=== PATIENT | female | born 1990 | race Hispanic/Latino ===

== ENCOUNTER 2019-02-25 08:14 | Inpatient (IN) | payer OTHER ==
[2019-02-25] MEDS ORDERED: Metoclopramide HCl 10 MG/2 ML VIAL ONE (09:31)
[2019-02-25] MEDS ORDERED: Ketorolac Tromethamine 30 MG/ML VIAL ONE (09:31)
[2019-02-25] MEDS ORDERED: Lorazepam 2 MG/ML VIAL ONE (09:56)
[2019-02-25 10:32] LABS: #Eosinphils 0.1 thou/uL (0.0-0.7); #Lymphocytes 2.6 thou/uL (1.20-3.40); #Neutrophils 15.1 thou/uL (1.40-6.50); %Basophils 0.3 % (0.0-1.0); %Eosinophils 0.6 % (0.0-10.0); %Lymphocytes 13.6 % (21.0-51.0); %Monocytes 5.2 % (0.0-10.0); %Neutrophils 80.3 % (42.0-75.0); Mean Corpuscular Hemoglobin 29.3 pg (27.0-31.0); Mean Corpuscular Volume 88.6 fL (78.0-98.0); Mean Platelet Volume 8.3 fL (7.4-10.4); Platelet Count 267 thou/uL (130-400); RBC Distribution Width 11.5 % (11.5-14.5); Red Blood Cell (RBC) Count 4.11 mill/uL (4.20-5.40); White Blood Cell (WBC) Count 18.8 thou/uL (4.8-10.8)
--- NOTE | 2019-02-25 10:36 | CT ---
Head CT without contrast 02/25/2019: HISTORY: Headaches TECHNIQUE: Axial CT imaging at 5 mm intervals from vertex through skull base without contrast FINDINGS: The imaged paranasal sinuses and mastoid air cells are well aerated. No displaced calvarial fracture. No intracranial hemorrhage, midline shift, mass effect, or ventricul ar enlargement IMPRESSION: No acute findings.
[2019-02-25 10:42] LABS: BHCG - Serum Negative (NEGATIVE); Pregs Control Background? CLEAR/WHITE (CLR/WHITE); Pregs Control Bar Appear? YES (CONTROL BAR)
[2019-02-25 10:45] LABS: Bilirubin Negative (Negative); Blood, Urine 2+ (Negative); Clarity Clear (Clear); Glucose, Urine (Dipstick) Normal (Negative); Leukocyte 250 Leu/uL (Negative); Nitrite Negative (Negative); Protein, Urine (Dipstick) 50 mg/dL (Neg-Trace); Squamous Epithelial 0-3 HPF (0-3); Urobilinogen Normal mg/dL (Less than 2)
--- NOTE | 2019-02-25 10:45 | RAD ---
Exam: Chest one view: HISTORY: Seizure, headache syncopal episode nausea and vomiting FINDINGS: Poor inspiratory effort with bilateral vascular congestion, minimal cardiomegaly, and small pleural e ffusions. Probable mild interstitial edema, although this may well be exaggerated by poor inspiration. No confluent lobar pneumonia. No prior exams. IMPRESSION: Poor inspiratory effort. Minimal cardiomegaly, vascular congestion, probable small pleural effusions and possible mild edema. These changes are accentuated by the poor inspiratory effort. Correlate clinically, consider short-term follow-up.
[2019-02-25 10:51] LABS: Amphetamine Not Detected (NotDetected); Barbiturates Screen Not Detected (NotDetected); Benzodiazepine Screen Not Detected (NotDetected); Cocaine Metabolite Screen Not Detected (NotDetected); Medtox Control Line Valid? VALID (VALID); Medtox Reader # READER 4; Methadone Not Detected (NotDetected); Methamphetamine Not Detected (NotDetected); Opiate Screen Not Detected (NotDetected); Oxycodone Screen Not Detected (NotDetected); Phencyclidine (PCP) Not Detected (NotDetected); THC/Cannabinoid Screen Not Detected (NotDetected); Tricyclic Screen Not Detected (NotDetected)
[2019-02-25 10:58] LABS: Bacteria/HPF None Seen HPF (None Seen)
[2019-02-25 11:06] LABS: Acetaminophen Less than 6.0 mcg/mL (10.0-30.0); Alcohol Less than 10 mg/dL (Less than 10); Salicylate Less than 8.0 mg/dL (15.0-30.0)
[2019-02-25 12:07] LABS: ALT (SGPT) 59 U/L (8-55); AST (SGOT) 15 U/L (5-34); Albumin 3.5 g/dL (3.5-5.0); Alkaline Phosphatase 66 U/L (40-110); Bilirubin, Total 0.3 mg/dL (0.2-1.2); Calc. Creatinine Clearance 0 mL/min (70-130); Chloride 103 mmol/L (98-107); Estimated GFR-MDRD 3; Globulin 3.6 g/dL (2.4-3.5); Glucose 121 mg/dL (70-105); Potassium 5.6 mmol/L (3.5-5.1); Protein, Total 7.1 g/dL (6.0-8.3); Sodium 137 mmol/L (136-145)
[2019-02-25 12:21] LABS: BUN (Urea Nitrogen) 153 mg/dL (7.0-18.7)
[2019-02-25 12:24] LABS: Carbon Dioxide Less than 8 mmol/L (22-29)
[2019-02-25] MEDS ORDERED: levETIRAcetam 500 MG TAB PO SCH (13:00)
[2019-02-25] MEDS ORDERED: Acetaminophen 650 MG Suppository PR PRN (13:05)
[2019-02-25] MEDS ORDERED: Acetaminophen 325 MG TAB PO PRN (13:05)
--- NOTE | 2019-02-25 13:24 | PDOC.HHP ---
Hospitalist HPI - History of Present Illness Headache History of Present Illness: Ms. Sunshine is a 29 yo woman who was brought from Shelter with complaints of a FLORES which she has had for 5 days. Also with nausea/vomiting. Apparently was noted by EMS to have a syncopal episode when standing. She was treated with medication for nausea by EMS. Difficulty obtaining much information as patient is drowsy from Ativan. She denies any other complaints. On arrival to the ED she was treated with reglan and toradol, then witnessed to have a 5 min tonic-clonic seizure. Ativan 2 mg given, and seizure subsided. Per Dr. Kenney, her eyes deviated to the left. She bit her tongue and no post -ictal state, however she remained with somnolent/flat affect as she had before the seizure. CT Head was done showing no acute intracranial abnormalities. UDS was negative. Initial labs showed a WCC of 18. Laboratory studies later came back showing acute renal failure with a creatinine of 13 and GFR of 3. Case has been discussed with Dr. Delvalle who advised central catheter placement and emergent dialysis. Denies any past medical history. No history of seizures or issues with her kidneys in the past. ED Course: As above. Hospitalist ROS - Review of Systems Constitutional: denies: fever, chills, sweats, weakness, malaise, other Eyes: reports: vision change (sensitivity to light). denies: pain, conjunctivae inflammation, eyelid inflammation, redness, other ENT: denies: ear pain, ear discharge, nose pain, nose discharge, nose congestion , mouth pain, mouth swelling, throat pain, throat swelling, other Respiratory: denies: cough, dry, shortness of breath, hemoptysis, SOB with excertion, pleuritic pain, sputum, wheezing, other Cardiovascular: reports: light headedness. denies: chest pain, palpitations, orthopnea, paroxysmal noc. dyspnea, edema, other Gastrointestinal: reports: nausea, vomiting. denies: abdominal pain, diarrhea, constipation, melena, hematochezia, other Genitourinary: denies: dysuria, frequency, incontinence, hematuria, retention, other Musculoskeletal: denies: neck pain, shoulder pain, arm pain, back pain, hand pain, leg pain, foot pain, other Skin: denies: rash, lesions, angelique, bruising, other Neurological: reports: seizures (Witnessed in the ED). 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 Gastrointestinal: reports: GERD Heme/Onc: reports: no pertinent history Hepatobiliary: reports: no pertinent history Psych: reports: no pertinent history Musculoskeletal: reports: no pertinent history Rheumatologic: reports: no pertinent history Infectious Disease: reports: no pertinent history ENT: reports: no pertinent history Renal/: reports: no pertinent history Endocrine: reports: no pertinent history Dermatology: reports: no pertinent history - Past Surgical History Past Surgical History: reports: - Family History Family History: reports: no pertinent history - Social History Smoking Status: Former smoker Alcohol: reports: None Drugs: reports: none Living Situation: Other (Transferred form Shelter) Activity level: independent ambulation - Exam General Appearance: NAD Eye: PERRL, anicteric sclera ENT: normocephalic atraumatic, no oropharyngeal lesions Neck: supple, no lymphadenopathy Heart: RRR, no murmur, no gallops, no rubs Respiratory: CTAB Gastrointestinal: soft, non-tender, non-distended, normal bowel sounds Extremities: no cyanosis, no clubbing, no edema Skin: normal turgor Neurological: cranial nerve grossly intact Neurological - other findings: Patient drowsy, speech slow but normal and appropriate Musculoskeletal: normal tone, no muscle wasting, generalized weakness Psychiatric: A&O x 3, oriented to person, oriented to place, somnolent Hospitalist Results - Labs Result Diagrams: 02/25/19 10:13 02/25/19 10:13 Lab results: WBC 18.8 thou/uL (4.8-10.8) H 02/25/19 10:13 Hgb 12.0 g/dL (12.0-16.0) 02/25/19 10:13 Hct 36.4 % (36.0-47.0) 02/25/19 10:13 MCV 88.6 fL (78.0-98.0) 02/25/19 10:13 Plt Count 267 thou/uL (130-400) 02/25/19 10:13 Neutrophils % 80.3 % (42.0-75.0) H 02/25/19 10:13 Sodium 137 mmol/L (136-145) 02/25/19 10:13 Potassium 5.6 mmol/L (3.5-5.1) H 02/25/19 10:13 Chloride 103 mmol/L (98-107) 02/25/19 10:13 Carbon Dioxide Less than 8 mmol/L (22-29) L* 02/25/19 10:13 BUN 153 mg/dL (7.0-18.7) H 02/25/19 10:13 Creatinine 13.34 mg/dL (0.6-1.1) H 02/25/19 10:13 Glucose 121 mg/dL (70-105) H 02/25/19 10:13 Calcium 9.0 mg/dL (7.8-10.44) 02/25/19 10:13 Total Bilirubin 0.3 mg/dL (0.2-1.2) 02/25/19 10:13 AST 15 U/L (5-34) 02/25/19 10:13 ALT 59 U/L (8-55) H 02/25/19 10:13 Alkaline Phosphatase 66 U/L (40-110) 02/25/19 10:13 Serum Total Protein 7.1 g/dL (6.0-8.3) 02/25/19 10:13 Albumin 3.5 g/dL (3.5-5.0) 02/25/19 10:13 Urine Ketones Negative mg/dL (Negative) 02/25/19 10:13 Urine Blood 2+ (Negative) A 02/25/19 10:13 Urine Nitrite Negative (Negative) 02/25/19 10:13 Ur Leukocyte Esterase 250 Giovana/uL (Negative) A 02/25/19 10:13 Urine RBC 7-10 HPF (0-3) A 02/25/19 10:13 Urine WBC 11-20 HPF (0-3) A 02/25/19 10:13 Ur Squamous Epith Cells 0-3 HPF (0-3) 02/25/19 10:13 Urine Bacteria None Seen HPF (None Seen) 02/25/19 10:13 - Radiology Interpretation CT scan - head Status: report reviewed by me Hospitalist H&P A/P - Problem (1) Hyperkalemia Code(s): E87.5 - HYPERKALEMIA Status: Acute (2) ARF (acute renal failure) Status: Acute (3) New onset seizure Code(s): R56.9 - UNSPECIFIED CONVULSIONS Status: Acute (4) Headache Code(s): R51 - HEADACHE Status: Acute (5) Syncope Code(s): R55 - SYNCOPE AND COLLAPSE Status: Acute (6) GERD (gastroesophageal reflux disease) Code(s): K21.9 - GASTRO-ESOPHAGEAL REFLUX DISEASE WITHOUT ESOPHAGITIS Status: Acute - Plan Plan: Dr. Kenney discussed with Dr. Delvalle, patient for central line and emergent dialysis. Repeat labs following dialysis. Renal ultrasound. EKG to be completed. PRN ativan. Neuro consult placed, per Dr. Paul, defer further investigations per Neuro. Additional labs including Mg+, lactic acid, CK and prolactin. Patient assessed and discussed with Dr. Paul who agrees with plan as above.
[2019-02-25] MEDS ORDERED: Lorazepam 2 MG/ML VIAL SLOW IVP PRN (13:34)
--- NOTE | 2019-02-25 14:49 | ULT ---
Exam: Bilateral renal ultrasound complete: HISTORY: Renal failure COMPARISON: None FINDINGS: Right kidney: 11.7 x 6.4 x 6.2 cm Left kidney: 11.9 x 6.3 x 6.1 cm No renal hydronephrosis. No evidence for abnormal perinephric process. No solid or cystic renal mass. Unremarkable appearing urinary bladder. Prevoid bladder volume 290 cc. Post void bladder volume 6 cc IMPRESSION: Unremarkable bilateral renal ultrasound. No hydronephrosis or perinephric process.
--- NOTE | 2019-02-25 14:51 | ULT ---
Exam: Bladder ultrasound: HISTORY: Renal failure. FINDINGS/impression: The urinary bladder is unremarkable. Neither right or left ureteral jets are seen. Prevoid bladder volume 290 cc. Post void bladder volume 6 cc
[2019-02-25 15:12] LABS: HBSAg Index 0.16 S/CO (0-0.99); Hep B Surf Ag Non-Reactive S/CO (NonReactive)
[2019-02-25 15:40] VITALS: BMI 37.1
[2019-02-25 15:50] LABS: CRP (Inflammatory) 9.4 mg/dL (= or < 0.5)
[2019-02-25 15:56] LABS: Lactic Acid 0.8 mmol/L (0.5-2.2)
--- NOTE | 2019-02-25 16:03 | CON ---
DATE OF CONSULTATION: 02/25/2019 REQUESTING PHYSICIAN: Dr. Hai Paul. REASON FOR CONSULTATION: Acute renal failure. HISTORY OF PRESENT ILLNESS: A 29-year-old female, a [facility] inmate, who was [facility] the [facility] after a syncopal episode. The patient reportedly has been having headaches since about 5 days associated with nausea and vomiting, which reportedly started after taking ibuprofen for headache 4 days ago. Headache persisted, since then up onto presentation to the ER. The patient also reported that nausea and vomiting gets worse after eating. She reportedly was seen at the [facility] and was given 2 tablets of Tylenol 4 days ago, following which she developed nausea and vomiting. She went back and was told to eat some salty diet and drink a lot of fluid. She had a few other bouts of nausea and vomiting. Earlier today, the patient reportedly woke up with dizziness and blurry vision and soon found herself on the floor. EMS was called and the patient was brought to the hospital. While evaluation was in process in the ER, the patient had a tonic clonic convulsive seizure. Labs drawn earlier on, came back showing BUN of 153 with creatinine of 13.3. On further questioning, the patient admitted that she has been having dizziness on standing since onset of symptoms. She also admitted to using ibuprofen daily when she injured her right knee about 2 to 3 weeks ago and was also prescribed steroid for the knee pain. She denied taking any substance to harm herself. She has no any knowledge of prior kidney problems or any medical issue. She has been in the retirement for about 7 years and has never been told she has kidney problems. She admitted to bilateral leg swelling which she noticed about several days ago. There is no history of fever, cough, chest pain, dysuria, hematuria, hematemesis, abdominal pain, hematochezia, hematuria, or change in bowel habit. The patient denied diarrhea. PAST MEDICAL HISTORY: None. PAST SURGICAL HISTORY: . FAMILY HISTORY: The patient does not know medical history of her parents. She, however, denied any kidney disease in both parents or siblings. SOCIAL HISTORY: The patient is a former smoker. She also drinks alcohol occasionally, but in the last 7 years has not smoked or drank alcohol. HOME MEDICATIONS: Ibuprofen p.r.n. ALLERGIES: NO KNOWN DRUG ALLERGIES REPORTED. REVIEW OF SYSTEMS: A 12-point review of system performed was negative other than pertinent positives and negatives included in the history of present illness. PHYSICAL EXAMINATION: VITAL SIGNS: Initial vitals on presentation to the ER showed BP 165/115, pulse 84, respiratory rate 18, SpO2 of 98% on room air, temperature 98.4, pain 8/10. Most recent vitals showed BP of 128/93, pulse of 90, respiratory rate of 20, temperature of 98.5, pain 0/10 and SpO2 of 97 on room air. Note that the patient had a cocktail of metoclopramide and ketorolac for headache prior to the seizures. GENERAL: Obese young female, in no distress. Afebrile. Anicteric. Acyanotic. HEENT: Normocephalic, atraumatic. Pupils are reacting to light. Oral mucosa is moist. NECK: Supple. Nontender with good range of motion. No masses or lymphadenopathy or JVD appreciated. CARDIOVASCULAR: Regular rhythm and rate with normal heart sounds 1 and 2. RESPIRATORY: Fair air entry bilaterally with few transmitted breath sounds. No obvious crackle or rhonchi or use of accessory muscles appreciated. GI: Obese, soft, nontender, nondistended with normal bowel sounds. EXTREMITIES: Grossly normal looking atraumatic with no erythema. Mild to moderate bilateral leg edema noted. VEHICLE CHECK IN CLERK: Conscious and alert and oriented x3 with appropriate mental status. Cranial nerves 2 through 12 are grossly intact. The patient moves all extremities. There is no tremors appreciated. PSYCHIATRIC: The patient seems appropriate with good insight. No restlessness or agitation appreciated. DIAGNOSTIC DATA: CBC showed WBC count of 18.8, hemoglobin of 12.0, MCV of 88.6, platelet of 267. CMP showed sodium 137, potassium 5.6, chloride 103, CO2 less than 8, anion gap too numerous to count, BUN 153, creatinine 13.34, glucose 121, calcium 9.0, total bilirubin 0.3, AST 15, ALT 59, alkaline phosphatase 66, total protein 7.1, albumin 3.5, globulin 3.6. Urinalysis showed light yellow, clear urine with pH of 5.5, specific gravity of 1.009. Urine protein of 50 mg/dL, 2+ of blood, normal glucose, negative ketone, nitrite, bilirubin, 250 mg/dL leukocyte esterase. Microscopy showed 7 to 10 rbc and 11 to 20 wbc with 2+ amorphous crystals. Urine drug screen was negative. Plasma alcohol was less than 10. Acetaminophen was less than 6.0 and salicylate was less than 8.0. test was negative. EKG showed sinus tachycardia with rate of [address] and T-wave changes. Chest x-ray showed vascular congestion with probable small pleural effusion. CT scan of the brain showed no acute findings. Renal ultrasound showed normal size kidneys measuring 11.7 x 6.4 x 6.2 on the right side and 11.9 x 6.3 x 6.1 on the left side. No hydronephrosis was noted. Prevoid bladder volume was 290 while post void bladder volume was 6 cm. ASSESSMENT: 1. Acute renal failure: Etiology is unclear, but the patient admitted to using NSAIDs. NSAID-induced nephropathy is most likely. 2. Severe azotemia with seizure episode. 3. Intractable headache: Most likely related to marked azotemia and renal failure. 4. Bilateral leg edema. 5. Volume overload with leg edema and pulmonary congestion. 6. Severe metabolic acidosis. 7. Seizure disorder: This most likely due to azotemia. 8. Hypertension. PLAN: 1. We will dialyze the patient emergently as the seizure is deemed to be due to marked azotemia. 2. We will also get urine electrolytes and urine protein creatinine ratio. 3. We will also get serology for hepatitis as well as HIV. 4. We will also get NICKOLAS, CRP, ESR, and C3/C4. 5. We will also plan to get renal biopsy to ascertain the etiology of renal failure. 6. We will monitor electrolytes. Many thanks for involving us in the care of this patient. We will follow along with you. Further recommendation to follow depending on hospital course and review of other diagnostic tests. Job ID: [id number]
[2019-02-25 16:09] LABS: HBSAg Index 0.46 S/CO (0-0.99); Hep B Surf Ag Non-Reactive S/CO (NonReactive); Hep C IgG Ab Non-Reactive (NonReactive); Hep C Index 0.05 S/CO (0-0.79)
[2019-02-25 16:11] LABS: HBCM Index 0.12 S/CO (0-0.79); Hep A IgM AB Non-Reactive (NonReactive); Hep A IgM S/CO 0.16 S/CO (0-0.79); Hepatitis B Core IgM Abs Non-Reactive (NonReactive)
[2019-02-25 16:22] LABS: HIV (1/2) Antibody/Antigen Non-Reactive (NonReactive); HIV 1/2 INDEX 0.09 S/CO (<1.00)
[2019-02-25] MEDS: Sodium Bicarbonate 150 MEQ in Dextrose 5% in Water 1,000 ML IV SCH ×2 (16:55→22:44)
[2019-02-25] MEDS ORDERED: Ondansetron ODT 4 MG TAB SL PRN (17:05)
[2019-02-25] MEDS ORDERED: Ondansetron PF 4 MG/2 ML Vial IVP PRN (17:05)
[2019-02-25 17:25] LABS: Potassium, Urine 16.1 mmol/L
[2019-02-25 17:32] LABS: Protein, Urine Random Quant 32 mg/dL (1-14); Sodium, Urine 82 mmol/L (Not Available); Urea Nitrogen, Random Urine 404 mg/dl
[2019-02-25] MEDS: Mannitol 12.5 GM/50 ML IV PRN ×2 (17:51→18:51)
[2019-02-26 05:01] LABS: #Basophils 0.1 thou/uL (0.0-0.2); #Eosinphils 0.3 thou/uL (0.0-0.7); #Lymphocytes 1.2 thou/uL (1.20-3.40); #Monocytes 0.9 thou/uL (0.11-0.59); #Neutrophils 7.3 thou/uL (1.40-6.50); %Basophils 0.7 % (0.0-1.0); %Eosinophils 2.7 % (0.0-10.0); %Lymphocytes 12.5 % (21.0-51.0); %Monocytes 8.7 % (0.0-10.0); %Neutrophils 75.4 % (42.0-75.0); Hemoglobin 9.6 g/dL (12.0-16.0); Mean Corpuscular HGB CONC 34.5 g/dL (32.0-36.0); Mean Corpuscular Hemoglobin 30.2 pg (27.0-31.0); Mean Corpuscular Volume 87.5 fL (78.0-98.0); Mean Platelet Volume 8.3 fL (7.4-10.4); Platelet Count 218 thou/uL (130-400); RBC Distribution Width 11.4 % (11.5-14.5); Red Blood Cell (RBC) Count 3.18 mill/uL (4.20-5.40); White Blood Cell (WBC) Count 9.7 thou/uL (4.8-10.8)
[2019-02-26 05:22] LABS: Anion Gap 17 mmol/L (10-20); BUN (Urea Nitrogen) 108 mg/dL (7.0-18.7); Calc. Creatinine Clearance 14 mL/min (70-130); Calcium 7.8 mg/dL (7.8-10.44); Carbon Dioxide 24 mmol/L (22-29); Chloride 101 mmol/L (98-107); Estimated GFR-MDRD 5; Glucose 126 mg/dL (70-105); Potassium 4.5 mmol/L (3.5-5.1); Sodium 137 mmol/L (136-145)
[2019-02-26] MEDS: Sodium Bicarbonate 150 MEQ in Dextrose 5% in Water 1,000 ML IV SCH (05:30)
[2019-02-26 08:41] LABS: INR-International Normal Ratio 1.3; PTT 41.7 SEC (22.9-36.1); Prothrombin Time 15.9 SEC (12.0-14.7)
[2019-02-26] MEDS ORDERED: Fentanyl 100 MCG/2 ML VIAL ONE (08:50)
[2019-02-26] MEDS ORDERED: Sodium Bicarbonate 2.5 MEQ/5 ML VIAL ONE (08:50)
[2019-02-26] MEDS ORDERED: Midazolam HCl 2 mg/2 ml Vial ONE (08:51)
[2019-02-26 09:10] LABS: Ferritin 170.1 ng/mL (10-291)
--- NOTE | 2019-02-26 09:42 | PRG ---
DATE OF SERVICE: 02/26/2019 SERVICE: Nephrology. 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 The patient also had an observed seizure episode in the ER, which was thought to be azotemia-induced. The patient had emergent hemodialysis yesterday and she is feeling a lot better today. Etiology of acute renal failure remains unclear. OBJECTIVE: VITAL SIGNS: Temperature 98.7, pulse 103, respiratory rate 18, SpO2 92 on room air, and blood pressure is 122/72. GENERAL: Obese female, in no distress. Afebrile. Anicteric. Acyanotic. HEENT: Normocephalic, atraumatic. Oral mucosa is moist. CARDIOVASCULAR: Regular rhythm and rate with normal heart sounds one and two. No obvious murmur was appreciated. RESPIRATORY: Good air entry bilaterally with no crackle or rhonchi or use of accessory muscles. GASTROINTESTINAL: Full, soft, nontender, nondistended with normal bowel sounds. EXTREMITIES: Grossly normal looking atraumatic with no erythema. Mild edema of the feet noted. CENTRAL NERVOUS SYSTEM: Conscious, alert, oriented x3 with appropriate mental status. DIAGNOSTIC DATA: CBC showed WBC count of 9.7, hemoglobin of 9.6, platelet of 218. BMP showed sodium 137, potassium 4.5, chloride 101, CO2 24, BUN 108, creatinine 9.82, glucose 126, calcium 7.8. CPK is 648, down from 900. C-reactive protein is 9.4. PTH intact, is 417. Complements: C3 113, C4 47. Serology: Hepatitis panel is nonreactive. Hepatitis, HIV one and two also is nonreactive. ASSESSMENT: 1. Acute renal failure: Etiology remains unclear. The patient denied prior history of chronic kidney disease. Ultrasound showed normal-sized kidneys without hydronephrosis. Serologies so far on unremarkable. 2. Marked azotemia with uremic encephalopathy. 3. Uremic encephalopathy. 4. Seizure due to uremic encephalopathy. 5. Secondary hyperparathyroidism: This points to chronic kidney disease. 6. Acute anemia: Hemoglobin dropped from 12 on admission to 9. PLAN: 1. We will dialyze the patient for 3 hours today. We will also get renal biopsy. We will discontinue sodium bicarbonate infusion as the patient is getting dialysis and metabolic acidosis has resolved. 2. Further recommendation and treatment to follow depending on hospital course and review of other diagnostic test. Job ID: [id number]
--- NOTE | 2019-02-26 12:00 | PDOC.HOSPP ---
- Subjective Encounter Date: 02/26/19 Encounter Time: 09:00 Subjective: awake, responds well to verbal stimuli had intractable nausea/vomiting x 1 week, was eating but would throw up all of it. no prior h/o renal issues or seizure no h/o diarrhea/fever/lupus or rheumatic diseases is in [facility] from 6 yrs for drug related offence, has 2 more to go prior to release has 3 siblings with no medical issues, both parents are healthy as well pt has a 10 yr old girl, healthy No sob or cardiac history she says she was still making normal col urine until she arrived here - Objective Vital Signs & Weight: Vital Signs (12 hours) Temp Pulse Resp BP BP BP Pulse Ox 02/26/19 10:14 98.0 F 88 18 137/107 H 98 02/26/19 08:00 98.1 F 91 22 H 133/87 132/83 139/87 94 L 02/26/19 04:00 98.7 F 103 H 18 122/74 92 L 02/26/19 00:00 99.0 F 97 19 130/90 94 L Weight Admit Weight 223 lb 3.2 oz Weight 223 lb 3.2 oz I&O: 02/25/19 02/26/19 02/27/19 06:59 06:59 06:59 Intake Total 2309 Output Total 1550 200 Balance 759 -200 Result Diagrams: 02/26/19 04:25 02/26/19 04:25 - Exam General Appearance: NAD, awake alert Eye: PERRL, anicteric sclera ENT: no oropharyngeal lesions, moist mucosa Neck: supple, no JVD Heart: RRR, no murmur Respiratory: no wheezes, no rales Gastrointestinal: soft, non-tender, non-distended, normal bowel sounds Extremities: no cyanosis, no edema Neurological: cranial nerve grossly intact, no focal deficits Psychiatric: normal affect, A&O x 3 Hosp A/P (1) ARF (acute renal failure) Status: Acute Qualifiers: Acute renal failure type: unspecified Qualified Code(s): N17.9 - Acute kidney failure, unspecified (2) Metabolic acidosis Code(s): E87.2 - ACIDOSIS Status: Resolved (3) GERD (gastroesophageal reflux disease) Code(s): K21.9 - GASTRO-ESOPHAGEAL REFLUX DISEASE WITHOUT ESOPHAGITIS Status: Chronic (4) Headache Code(s): R51 - HEADACHE Status: Resolved Qualifiers: Headache type: unspecified (5) Hyperkalemia Code(s): E87.5 - HYPERKALEMIA Status: Resolved (6) New onset seizure Code(s): R56.9 - UNSPECIFIED CONVULSIONS Status: Resolved (7) Obesity (BMI 30-39.9) Code(s): E66.9 - OBESITY, UNSPECIFIED Status: Chronic - Plan had 1 session of HD yesterday, hco3 has normalized likely prerenal uremia/arf, no prior medical history to contribute for kidney disease was taking steroids/unknown pill for nausea/vomiting and left knee pain at [facility] x 1 week accurate I/O suggest continuing iv fluids with no bicarb may hold HD after todays session to see if her kidneys start working likely chronic anemia, iron indices no further seizures after hospitalization, one episode due to uremia to ambulate as tolerated in hallway Had renal biopsy done this am
--- NOTE | 2019-02-26 12:21 | CT ---
EXAM: CT guided random left renal biopsy PROVIDED CLINICAL HISTORY: Acute renal failure of unclear etiology. COMPARISON: None TECHNIQUE: The procedure including the risks and complications were explained to the patient, and informed conse nt was obtained. Patient was placed on the CT scan table in the prone position. A limited noncontrasted CT scan was obtained to the level of the kidneys with grid localizers in place overlyin g each kidney. An area overlying the inferior pole left kidney was marked, and the area was meticulously prepped and draped in usual sterile fashion. The skin and subcutaneous tissues were infiltrated with buffered 1% lidocaine for local anesthesia. A small skin incision was made. A 17-gauge guide needle was advanced into the inferior pole left renal cortex. Two 18-gauge core needle biopsy specimens were obtained utilizing coaxial technique. H owever, the initial specimens only yielded fat. As result, the needle was repositioned and placed in the posterior lateral peripheral cortex of the inferior pole left kidney. [id number] core needle biopsy specimens were obtained. Specimens were evaluated by the pathologist, and glomeruli were seen in each specimen. An additional core needle biopsy was requested. The stylette was replaced, and the needle was removed. Hemostasis was achieved with direct pressure. Follow-up CT examination demonstrates small amount of hemorrhage and gas adjacent to the inferior pole left kidney related to recent biopsy. Patient's vital signs remained stable during the procedure as well as postprocedure. Dry sterile dressing was placed at puncture site. Patient tolerated well without immediate complication. IMPRESSION: Technically successful CT-guided percutaneous biopsy of inferior pole left kidney. Glomeruli were see n within the specimens. Final pathology is currently pending.
[2019-02-26] MEDS ORDERED: Heparin 10,000 UNITS/1 ML VIAL ONE (15:00)
[2019-02-26] MEDS ORDERED: Mannitol 12.5 GM/50 ML IV PRN (15:50)
[2019-02-26] MEDS ORDERED: Activase 2 MG VIAL CATH SCH (18:45)
[2019-02-26] MEDS ORDERED: Sterile Water 10 ML VIAL IVP SCH (18:45)
[2019-02-26] MEDS: Ondansetron PF 4 MG/2 ML Vial IVP PRN (22:23)
[2019-02-27 05:46] LABS: Anion Gap 14 mmol/L (10-20); BUN (Urea Nitrogen) 66 mg/dL (7.0-18.7); BUN/Creatinine Ratio 8.85; CK (CPK) 543 U/L (29-168); Calc. Creatinine Clearance 18 mL/min (70-130); Calcium 8.3 mg/dL (7.8-10.44); Carbon Dioxide 28 mmol/L (22-29); Chloride 102 mmol/L (98-107); Estimated GFR-MDRD 6; Glucose 96 mg/dL (70-105); Phosphorus 6.3 mg/dL (2.3-4.7); Potassium 4.7 mmol/L (3.5-5.1); Sodium 139 mmol/L (136-145)
--- NOTE | 2019-02-27 07:41 | CON ---
DATE OF CONSULTATION: 02/26/2019 CONSULTING PHYSICIAN: Hospitalist Service. IMPRESSION: Seizure, likely related to acute severe uremia. PLAN: I would hold off on anticonvulsants for now. HISTORY OF PRESENT ILLNESS: Ms. Sunshine is a 29-year-old female, who came in after having a witnessed generalized seizure. She felt some strange twitching sensation before she lost consciousness. She apparently had a generalized tonic-clonic seizure. She had some postictal confusion. She was brought to the emergency room. Her CT of the brain was negative. She was loaded with 1000 mg of Keppra. Her vital signs were otherwise stable and she was afebrile. Her lab work was remarkable for a BUN of 108 and creatinine of 9.8. Her prolactin was 110. Her parathormone was 417. Her CK was 648, CRP 9.4. Urine suggested the possibility of some infection. Her toxicology screen was negative. She denies past history of head injury, meningitis, or encephalitis. She has never had a seizure in the past. PAST MEDICAL HISTORY: Otherwise negative. ALLERGIES: NONE. SOCIAL HISTORY: No tobacco or illicit drug use. FAMILY HISTORY: Unremarkable. REVIEW OF SYSTEMS: Ten-system review of systems is otherwise negative. PHYSICAL EXAMINATION: GENERAL: She is a healthy-appearing young woman, in no acute distress. VITAL SIGNS: Have been stable. She is afebrile. HEENT: Pupils are equal. Conjunctivae are clear. Oropharynx is clear. NECK: Supple. No lymphadenopathy. EXTREMITIES: No cyanosis. NEUROLOGIC: She is alert and appropriate. Her speech is fluent and clear. Cranial nerves 2 through 12 are intact. Motor exam shows equal strength. Her sensations are intact to touch. She has no tremor or dysmetria. Gait is not testable at this point due to being on the dialysis machine. SUMMARY: A young woman with acute seizure with severe metabolic stress. She will not likely need anticonvulsants once her metabolic status is corrected. I will be available if there are any further questions. Job ID: [id number]
--- NOTE | 2019-02-27 10:59 | PDOC.HOSPP ---
- Subjective Encounter Date: 02/27/19 Encounter Time: 09:00 Subjective: awake, no sob or palp is ambulating in room no further seizures had back to back HD - Objective Vital Signs & Weight: Vital Signs (12 hours) Temp Pulse Resp BP Pulse Ox 02/27/19 04:05 85 96 02/27/19 03:46 98.6 F 104 H 14 122/73 88 L 02/27/19 00:00 99.5 F 80 14 139/101 H 90 L Weight Admit Weight 223 lb 3.2 oz Weight 223 lb 3.2 oz I&O: 02/26/19 02/27/19 02/28/19 06:59 06:59 06:59 Intake Total 2309 1290 Output Total 1550 650 Balance 759 640 Result Diagrams: 02/26/19 04:25 02/27/19 05:12 Hospitalist ROS - Medication Medications: Active Medications Generic Name Dose Route Start Last Admin Trade Name Freq PRN Reason Stop Dose Admin Ondansetron HCl 4 mg 02/26/19 22:12 02/26/19 22:23 Zofran IVP 4 mg Q6H PRN Administration Nausea/Vomiting Sodium Chloride 10 ml 02/25/19 13:05 02/26/19 22:24 Flush - Normal Saline IVF 10 ml Q12H PRN Administration Saline Flush - Exam General Appearance: NAD, awake alert Eye: PERRL, anicteric sclera ENT: no oropharyngeal lesions, moist mucosa Neck: supple, no JVD Heart: RRR, no murmur Respiratory: no wheezes, no rales Gastrointestinal: soft, non-tender, non-distended, normal bowel sounds Extremities: no cyanosis, no edema Neurological: cranial nerve grossly intact, no focal deficits Psychiatric: normal affect, A&O x 3 Hosp A/P (1) ARF (acute renal failure) Status: Acute Qualifiers: Acute renal failure type: unspecified Qualified Code(s): N17.9 - Acute kidney failure, unspecified (2) Metabolic acidosis Code(s): E87.2 - ACIDOSIS Status: Resolved (3) GERD (gastroesophageal reflux disease) Code(s): K21.9 - GASTRO-ESOPHAGEAL REFLUX DISEASE WITHOUT ESOPHAGITIS Status: Chronic (4) Headache Code(s): R51 - HEADACHE Status: Resolved Qualifiers: Headache type: unspecified (5) Hyperkalemia Code(s): E87.5 - HYPERKALEMIA Status: Resolved (6) New onset seizure Code(s): R56.9 - UNSPECIFIED CONVULSIONS Status: Resolved (7) Obesity (BMI 30-39.9) Code(s): E66.9 - OBESITY, UNSPECIFIED Status: Chronic (8) CHF (congestive heart failure), NYHA class II Code(s): I50.9 - HEART FAILURE, UNSPECIFIED Status: Acute Qualifiers: Congestive heart failure type: systolic Congestive heart failure chronicity : acute Qualified Code(s): I50.21 - Acute systolic (congestive) heart failure - Plan has had 2 sessions of HD. Need accurate I/O chart. likely prerenal uremia/arf, no prior medical history to contribute for kidney disease was taking steroids/unknown pill for nausea/vomiting and left knee pain at longterm x 1 week may hold HD to see if her kidneys start working, d/w likely chronic anemia no further seizures after hospitalization, one episode due to uremia to ambulate as tolerated in hallway await renal biopsy results. May tx to medical floor ef is 45%, add coreg, lower ef likely due to ARF, should normalize with resumption of renal function and volume status.
[2019-02-27 11:12] LABS: ANA Symphony (Qualitative) Negative (Negative); ANA Symphony (Quantitative) 0.1 Ratio (< 0.7 Negative); dsDNA IgG Antibody Less than 0.5 IU/mL (<10 Negative)
[2019-02-27] MEDS ORDERED: Ergocalciferol 1.25 MG(50,000 UNITS) CAP PO SCH (11:30)
--- NOTE | 2019-02-27 11:50 | PRG ---
DATE OF SERVICE: 02/27/2019 SERVICE: Nephrology. SUBJECTIVE: A 29-year-old female, being followed up for acute renal failure, requiring hemodialysis. Last hemodialysis was yesterday and the patient tolerated it well. She, however, clotted line and filter, requiring alteplase. The patient also had renal biopsy yesterday and pathology is pending at this time. Continues to make some urine. Denied shortness of breath, neck swelling, fever, dysuria, or hematuria. OBJECTIVE: VITAL SIGNS: Temperature 98.6, pulse 85, respiratory rate 14, SpO2 is 96 on room air, blood pressure is 122/73. GENERAL: Young female, in no distress. Afebrile, anicteric, and acyanotic. HEENT: Normocephalic and atraumatic. Oral mucosa is moist. CARDIOVASCULAR: Regular rhythm and rate with normal heart sounds 1 and 2. RESPIRATORY: Good air entry bilaterally with no crackle or rhonchi or use of accessory muscles. GI: Obese, soft, nontender, nondistended with normal bowel sounds. EXTREMITIES: Grossly normal looking, atraumatic with no edema or erythema. ARCHERY EQUIPMENT REPAIRER: Conscious and alert and oriented x3 with appropriate mental status. Cranial nerves 2 through 12 are grossly intact. DIAGNOSTIC DATA: Renal function panel today showed sodium of 139, potassium 4.7, chloride 102, CO2 of 28, BUN 66, creatinine 7.46, glucose 96, calcium 8.3, phosphorus 6.3, albumin 3.0. CPK today is down to 543 from peak of 895. Vitamin D is 10. PTH intact is 417. Serum iron is 40, TIBC 181, saturation is 22, and ferritin is 170. ASSESSMENT: 1. Acute renal failure of unclear etiology. Baseline chronic kidney disease is suggested by hyperphosphatemia and secondary hyperparathyroidism. The patient however denied prior kidney problem. She however admitted to using NSAIDs. Kidney size and echogenicity, however, are unremarkable suggesting more of acute renal failure. Renal biopsy pathology is pending at this time. 2. Presumed chronic kidney disease. 3. Anemia of chronic kidney disease. 4. Secondary hyperparathyroidism. 5. Vitamin D deficiency. 6. Hyperphosphatemia. PLAN: 1. Volume status and electrolytes and acid-base derangement are acceptable at this time. There is no indication for hemodialysis today. We will monitor intake and output as well as renal function and electrolytes. We will start vitamin D supplementation. 2. We will get repeat CBC tomorrow morning to confirm anemia. 3. We will consider iron therapy as well as erythrocyte stimulating agent. 4. We will start phosphate binder. 5. We will monitor vitals and start antihypertensives if indicated. 6. We will also start calcitriol for secondary hyperparathyroidism. 7. Further treatment and recommendation to follow depending on hospital course and review of other diagnostic test. Job ID: [id number]
[2019-02-27] MEDS: Sevelamer Carbonate 800 MG TAB PO SCH ×2 (12:49→17:15)
[2019-02-27] MEDS ORDERED: Carvedilol 3.125 MG TAB PO SCH (19:15)
[2019-02-28 05:18] LABS: #Basophils 0.1 thou/uL (0.0-0.2); #Eosinphils 0.3 thou/uL (0.0-0.7); #Lymphocytes 1.7 thou/uL (1.20-3.40); #Monocytes 0.8 thou/uL (0.11-0.59); #Neutrophils 7.2 thou/uL (1.40-6.50); %Basophils 0.8 % (0.0-1.0); %Eosinophils 2.8 % (0.0-10.0); %Lymphocytes 17.1 % (21.0-51.0); %Monocytes 7.6 % (0.0-10.0); %Neutrophils 71.7 % (42.0-75.0); Hemoglobin 9.5 g/dL (12.0-16.0); Mean Corpuscular HGB CONC 33.7 g/dL (32.0-36.0); Mean Corpuscular Hemoglobin 30.5 pg (27.0-31.0); Mean Corpuscular Volume 90.5 fL (78.0-98.0); Mean Platelet Volume 8.8 fL (7.4-10.4); Platelet Count 171 thou/uL (130-400); RBC Distribution Width 11.2 % (11.5-14.5); Red Blood Cell (RBC) Count 3.12 mill/uL (4.20-5.40)
[2019-02-28 05:45] LABS: Albumin 3.1 g/dL (3.5-5.0); Anion Gap 17 mmol/L (10-20); BUN (Urea Nitrogen) 63 mg/dL (7.0-18.7); BUN/Creatinine Ratio 8.64; Calc. Creatinine Clearance 18 mL/min (70-130); Calcium 8.9 mg/dL (7.8-10.44); Carbon Dioxide 25 mmol/L (22-29); Chloride 104 mmol/L (98-107); Estimated GFR-MDRD 7; Glucose 89 mg/dL (70-105); Phosphorus 6.9 mg/dL (2.3-4.7); Potassium 4.4 mmol/L (3.5-5.1); Sodium 142 mmol/L (136-145)
[2019-02-28] MEDS: Calcitriol 0.25 MCG CAP PO SCH (08:33)
[2019-02-28] MEDS: Carvedilol 3.125 MG TAB PO SCH ×2 (08:34→18:11)
[2019-02-28] MEDS: Furosemide 40 MG TAB PO SCH (08:34)
[2019-02-28] MEDS: Sevelamer Carbonate 800 MG TAB PO SCH ×3 (08:34→18:11)
[2019-02-28] MEDS ORDERED: Amlodipine 5 MG TAB PO SCH (09:30)
--- NOTE | 2019-02-28 09:56 | PRG ---
DATE OF SERVICE: 02/28/2019 SERVICE: Nephrology. SUBJECTIVE: A 29-year-old [facility] inmate, being followed up for acute renal failure requiring dialysis. No new problem. Denied nausea, vomiting, chest pain, leg swelling, or shortness of breath. Last dialysis was on February 26, 2019. OBJECTIVE: VITAL SIGNS: Temperature 98.3, pulse rate 74, respiratory rate 18, SpO2 of 96% on room air, and blood pressure is 149/101. GENERAL: Healthy-looking young female, in no distress. Afebrile. Anicteric. Acyanotic. HEENT: Normocephalic and atraumatic. Oral mucosa is moist. CARDIOVASCULAR: Regular rhythm and rate with normal heart sounds, 1 and 2. RESPIRATORY: Good air entry bilaterally with no crackle or rhonchi or use of accessory muscles. GI: Obese, soft, nontender, and nondistended with normal bowel sounds. EXTREMITIES: Grossly normal looking, atraumatic with no edema or erythema. Distal pulses are palpable. Right groin dialysis catheter noted. ADULT PROTECTIVE CASEWORKER: Conscious, alert, and oriented x3 with appropriate mental status. DIAGNOSTIC DATA: CBC showed WBC count of 10.0, hemoglobin of 9.5, MCV of 90.5, and platelets of 171. Renal function panel showed sodium of 142, potassium 4.4, chloride 104 CO2 of 25, BUN 63, creatinine 7.29, glucose 89, calcium 8.9, phosphorus 6.9, albumin 3.1. Of note, yesterday BUN was 66 and creatinine was 7.4 and phosphorus was 6.3. Renal biopsy showed diffuse interstitial inflammation/nephritis with less than 5% interstitial fibrosis. Also noted were myoglobin deposition. This is a preliminary report called out to be from the pathologist. Final report is pending at this time. ASSESSMENT: 1. 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 Of note, the patient came in with markedly elevated creatinine of 13 prior to having a seizure, which was the first episode in this hospital, hence rhabdomyolysis is not the primary cause of acute kidney injury. The patient admitted to using NSAIDs about 3 weeks ago. Moreover, the secondary hyperparathyroidism is not consistent with acute renal failure from rhabdomyolysis and moreover the highest level of CPK was 1000. Renal function is showing some improvement. Electrolytes are acceptable. BUN and creatinine are beginning to trend down even with discontinuation of hemodialysis. 2. Mild rhabdomyolysis. 3. 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 4. Hypertension: Blood pressure is trending up. 5. Metabolic acidosis: Resolved. 6. Anemia of chronic kidney disease. 7. Hyperphosphatemia. 8. Secondary hyperparathyroidism. 9. Vitamin D deficiency. PLAN: 1. There is no indication for dialysis today. Hence, there will be no dialysis. We will continue to monitor renal function as well as volume status and electrolytes. 2. We will start iron therapy for anemia of chronic kidney disease. 3. We will also start the patient on amlodipine for elevated blood pressure. We will also start the patient on Lasix 40 mg daily to help with volume management. 4. We will increase Renvela to 1600 with meals for hyperphosphatemia. 5. We will continue calcitriol and vitamin D supplementation for secondary hyperparathyroidism and vitamin D deficiency. 6. We will continue to trend CPK levels. We will recheck renal function and CPK in the morning. Job ID: [id number]
[2019-02-28] MEDS: Iron, Sodium Ferric Gluconate 250 MG in Sodium Chloride 0.9% 100 ML IVPB SCH ×2 (09:58→22:00)
[2019-02-28] MEDS: Ondansetron PF 4 MG/2 ML Vial IVP PRN (17:27)
--- NOTE | 2019-02-28 17:49 | PDOC.HOSPP ---
- Subjective Encounter Date: 02/28/19 Subjective: Pt seen feeling better , says has nausea this am - Objective Vital Signs & Weight: Vital Signs (12 hours) Temp Pulse Resp BP BP Pulse Ox 02/28/19 17:22 98.4 F 67 18 134/94 H 94 L 02/28/19 12:10 98.3 F 71 18 136/100 H 96 02/28/19 11:04 75 149/101 H 02/28/19 08:13 98.3 F 74 18 149/101 H 96 02/28/19 08:00 93 L Weight Admit Weight 223 lb 3.2 oz Weight 223 lb 3.2 oz I&O: 02/27/19 02/28/19 03/01/19 06:59 06:59 06:59 Intake Total 1290 1035 Output Total 650 800 Balance 640 235 Result Diagrams: 02/28/19 04:30 02/28/19 04:30 Hospitalist ROS - Review of Systems Constitutional: denies: fever Eyes: denies: pain ENT: denies: ear pain Cardiovascular: denies: chest pain Gastrointestinal: reports: nausea Musculoskeletal: denies: neck pain Neurological: denies: weakness - Medication Medications: Active Medications Generic Name Dose Route Start Last Admin Trade Name Freq PRN Reason Stop Dose Admin Calcitriol 0.25 mcg 02/28/19 09:00 02/28/19 08:33 Rocaltrol PO 0.25 mcg DAILY CELSO Administration Carvedilol 3.125 mg 02/28/19 08:00 02/28/19 08:34 Coreg PO 3.125 mg BID-WM CELSO Administration Furosemide 40 mg 02/28/19 07:30 02/28/19 08:34 Lasix PO 40 mg DAILY-AC CELSO Administration Ferric Sodium Gluconate 120 mls @ 60 mls/hr 02/28/19 09:00 02/28/19 09:58 Complex 250 mg/ Sodium IVPB 02/28/19 21:01 120 mls Chloride Q12HR CELSO Administration Ondansetron HCl 4 mg 02/26/19 22:12 02/28/19 17:27 Zofran IVP 4 mg Q6H PRN Administration Nausea/Vomiting Sevelamer Carbonate 1,600 mg 02/28/19 08:00 02/28/19 11:04 Renvela PO 1,600 mg TID-WM CELSO Administration Sodium Chloride 10 ml 02/25/19 13:05 02/26/19 22:24 Flush - Normal Saline IVF 10 ml Q12H PRN Administration Saline Flush - Exam General Appearance: awake alert Eye: PERRL ENT: normocephalic atraumatic Neck: supple Heart: no murmur Respiratory: no wheezes Gastrointestinal: soft Extremities: no cyanosis Neurological: cranial nerve grossly intact Musculoskeletal: normal tone Psychiatric: normal affect Hosp A/P - Plan ARF with Metabolic acidosis Continue to monitor BMP nephrology on board ,No need for HD today, check labs in am GERD Continue symptomatic management DVT/GI prophylaxis
[2019-03-01 04:26] LABS: #Basophils 0.1 thou/uL (0.0-0.2); #Eosinphils 0.4 thou/uL (0.0-0.7); #Lymphocytes 1.9 thou/uL (1.20-3.40); #Monocytes 0.7 thou/uL (0.11-0.59); #Neutrophils 7.9 thou/uL (1.40-6.50); %Basophils 1.1 % (0.0-1.0); %Eosinophils 3.7 % (0.0-10.0); %Lymphocytes 17.4 % (21.0-51.0); %Monocytes 6.2 % (0.0-10.0); %Neutrophils 71.5 % (42.0-75.0); Hemoglobin 9.8 g/dL (12.0-16.0); Mean Corpuscular HGB CONC 33.2 g/dL (32.0-36.0); Mean Corpuscular Hemoglobin 30.1 pg (27.0-31.0); Mean Corpuscular Volume 90.6 fL (78.0-98.0); Mean Platelet Volume 8.8 fL (7.4-10.4); Platelet Count 192 thou/uL (130-400); RBC Distribution Width 11.1 % (11.5-14.5); Red Blood Cell (RBC) Count 3.27 mill/uL (4.20-5.40)
[2019-03-01 04:45] LABS: Albumin 3.4 g/dL (3.5-5.0); Anion Gap 20 mmol/L (10-20); BUN (Urea Nitrogen) 58 mg/dL (7.0-18.7); BUN/Creatinine Ratio 8.98; CK (CPK) 337 U/L (29-168); Calc. Creatinine Clearance 21 mL/min (70-130); Calcium 9.6 mg/dL (7.8-10.44); Carbon Dioxide 24 mmol/L (22-29); Chloride 101 mmol/L (98-107); Estimated GFR-MDRD 8; Glucose 92 mg/dL (70-105); Phosphorus 7.4 mg/dL (2.3-4.7); Sodium 141 mmol/L (136-145)
[2019-03-01] MEDS: Sevelamer Carbonate 800 MG TAB PO SCH ×3 (09:17→16:27)
[2019-03-01] MEDS: Calcitriol 0.25 MCG CAP PO SCH (09:17)
[2019-03-01] MEDS: Furosemide 40 MG TAB PO SCH (09:18)
[2019-03-01] MEDS: Amlodipine 5 MG TAB PO SCH (09:18)
[2019-03-01] MEDS: Carvedilol 3.125 MG TAB PO SCH ×2 (09:18→16:27)
--- NOTE | 2019-03-01 09:55 | PRG ---
DATE OF SERVICE: 03/01/2019 SERVICE: Nephrology. SUBJECTIVE: A 29-year-old female being followed up for acute renal failure, requiring hemodialysis. The patient has shown significant renal recovery. Last dialysis was on February 26. She continues to make urine, and volume status is acceptable. OBJECTIVE: VITAL SIGNS: Temperature 98.6, pulse 90, respiratory rate 16, SpO2 of 92% on room air, and blood pressure is 131/92. GENERAL: Young female, in no distress. Afebrile. Anicteric. Acyanotic. HEENT: Normocephalic and atraumatic. Oral mucosa is moist. CARDIOVASCULAR: Regular rhythm and rate with normal heart sounds 1 and 2. RESPIRATORY: Good air entry bilaterally with no crackles or rhonchi or use of accessory muscles. GI: Full, soft, nontender, nondistended with normal bowel sounds. EXTREMITIES: Grossly normal looking, atraumatic with no edema or erythema. MARKETING AND PROMOTIONS MANAGER: Conscious, alert, and oriented x3 with appropriate mental status. DIAGNOSTIC DATA: Renal function panel showed sodium 141; potassium 4.0; chloride 101; CO2 of 24; BUN 58; creatinine 6.47, down from 7.29 yesterday; glucose 92; calcium 9.6; phosphorus 7.4; and albumin is 3.4. CK is down to 337 from peak of 895. CBC today showed WBC count of 11, hemoglobin of 9.8, and platelets of 192. ASSESSMENT: 1. Acute renal failure: This is felt to be due to NSAID nephropathy. Biopsy showed diffuse interstitial nephritis with some myoglobin deposition. The myoglobin deposition was felt to be due to rhabdomyolysis that occurred after the seizure. 2. The patient was treated with dialytic therapy for 2 times, and renal function has been improving subsequently. 3. Uremic encephalopathy with seizure. 4. Seizure episode: Allen to be due to uremic encephalopathy. 5. Rhabdomyolysis. 6. Secondary hyperparathyroidism. 7. Anemia of chronic kidney disease. 8. Hyperphosphatemia. 9. Vitamin D deficiency. 10. Hypertension. 11. Metabolic acidosis. PLAN: 1. Start amlodipine 5 mg daily to get adequate BP control. 2. Continue Lasix 40 mg daily to help with fluid management. 3. Continue vitamin D supplementation as well as calcitriol and Renvela. 4. Since no further dialytic therapy is contemplated, the patient can be discharged from Nephrology point of view to follow up in 1 week with repeat labs. It is recognized, however, that this could be dialyzed since the patient is incarcerated. Weekly BMP is recommended as well as weekly followup. If, however, this could not be possible, then patient might need to be in the hospital. The patient was advised to avoid NSAIDs. We will repeat renal function panel in the morning if the patient is still hospitalized. Job ID: [id number]
--- NOTE | 2019-03-01 12:14 | PDOC.HOSPP ---
- Subjective Encounter Date: 03/01/19 Subjective: Pt seen feeling better , not in distress , No complaints today - Objective Vital Signs & Weight: Vital Signs (12 hours) Temp Pulse Resp BP BP Pulse Ox 03/01/19 09:18 90 131/92 H 03/01/19 08:00 92 L 03/01/19 07:33 98.6 F 90 16 131/92 H 92 L 03/01/19 04:43 98.3 F 79 16 120/82 92 L Weight Admit Weight 223 lb 3.2 oz Weight 223 lb 3.2 oz I&O: 02/28/19 03/01/19 03/02/19 06:59 06:59 06:59 Intake Total 1035 1870 Output Total 800 2650 Balance 235 -780 Result Diagrams: 03/01/19 03:47 03/01/19 03:47 Hospitalist ROS - Review of Systems Constitutional: denies: fever Eyes: denies: pain ENT: denies: ear pain Respiratory: denies: cough Cardiovascular: denies: chest pain Gastrointestinal: reports: other (small pustule right anterior abd wall) Musculoskeletal: reports: neck pain Neurological: reports: weakness - Medication Medications: Active Medications Generic Name Dose Route Start Last Admin Trade Name Freq PRN Reason Stop Dose Admin Amlodipine Besylate 5 mg 03/01/19 09:00 03/01/19 09:18 Norvasc PO 5 mg DAILY CELSO Administration Calcitriol 0.25 mcg 02/28/19 09:00 03/01/19 09:17 Rocaltrol PO 0.25 mcg DAILY CELSO Administration Carvedilol 3.125 mg 02/28/19 08:00 03/01/19 09:18 Coreg PO 3.125 mg BID-WM CELSO Administration Furosemide 40 mg 02/28/19 07:30 03/01/19 09:18 Lasix PO 40 mg DAILY-AC CELSO Administration Ondansetron HCl 4 mg 02/26/19 22:12 02/28/19 17:27 Zofran IVP 4 mg Q6H PRN Administration Nausea/Vomiting Sevelamer Carbonate 1,600 mg 02/28/19 08:00 03/01/19 11:45 Renvela PO 1,600 mg TID-WM CELSO Administration Sodium Chloride 10 ml 02/25/19 13:05 02/26/19 22:24 Flush - Normal Saline IVF 10 ml Q12H PRN Administration Saline Flush - Exam General Appearance: awake alert Eye: anicteric sclera ENT: normocephalic atraumatic Neck: supple Heart: no murmur Respiratory: CTAB Gastrointestinal: soft Gastrointestinal - other findings: small boil /pustule anterior abd wall Extremities: no cyanosis Skin: normal turgor Neurological: cranial nerve grossly intact Musculoskeletal: normal tone Hosp A/P - Plan ARF with Metabolic acidosis Continue to monitor BMP nephrology on board ,No need for HD , creatinine trending down check labs in am , GERD Continue symptomatic management Small Boil/pustule right lower anterior abdominal wall added local application DVT/GI prophylaxis [place] dc in am Plan Discussed with pt and nursing staff
[2019-03-01] MEDS: Bacitracin Zinc Ointment 30 gm TUBE TOP SCH (16:27)
[2019-03-02 06:04] LABS: Albumin 3.6 g/dL (3.5-5.0); Anion Gap 17 mmol/L (10-20); BUN (Urea Nitrogen) 56 mg/dL (7.0-18.7); BUN/Creatinine Ratio 9.79; Calc. Creatinine Clearance 23 mL/min (70-130); Calcium 10.6 mg/dL (7.8-10.44); Carbon Dioxide 30 mmol/L (22-29); Chloride 98 mmol/L (98-107); Estimated GFR-MDRD 9; Glucose 95 mg/dL (70-105); Phosphorus 7.7 mg/dL (2.3-4.7); Potassium 3.7 mmol/L (3.5-5.1); Sodium 141 mmol/L (136-145)
--- NOTE | 2019-03-02 07:46 | PRG ---
DATE OF SERVICE: 03/02/2019 SERVICE: Nephrology. SUBJECTIVE: A 29-year-old female admitted due to acute renal failure and seizure. The patient was found to have acute renal failure with severe uremia, encephalopathy associated with seizure. The patient required hemodialysis. Feeling a lot better. Denied chest pain, nausea, vomiting, leg swelling, or palpitations. No fever or change in bowel habit. Continue to make urine. OBJECTIVE: VITAL SIGNS: Temperature 98.4, pulse 84, respiratory rate 18, SpO2 of 95% on room air, blood pressure 121/86. GENERAL: Young female, in no distress. Afebrile, anicteric. HEENT: Normocephalic, atraumatic. CARDIOVASCULAR: Regular rhythm and rate with normal heart sounds 1 and 2. RESPIRATORY: Good air entry bilaterally with no crackle or rhonchi or use of accessory muscles. GI: Full, soft, nontender, nondistended with normal bowel sounds. EXTREMITIES: Grossly normal looking atraumatic with no edema. MAIL HANDLERS SUPERVISOR: Conscious and alert oriented x3 with appropriate mental status. DIAGNOSTIC DATA: Renal function panel today showed sodium 141, potassium 3.7, chloride 98, CO2 of 30, anion gap 17, BUN 56, creatinine 5.72, glucose 95, calcium 10.6, phosphorus 9.7, and albumin 3.6. ASSESSMENT: 1. Acute renal failure, requiring hemodialysis. Mcintosh to be due to NSAID induced nephropathy with possible contribution from volume depletion and rhabdomyolysis. Last hemodialysis is on February 26 and creatinine has been trending down subsequently. 2. Secondary hyperparathyroidism. 3. Mild hypercalcemia. 4. Vitamin D deficiency. 5. Anemia of chronic kidney disease. 6. Hypertension. 7. Uremic encephalopathy with seizure, resolved. 8. Seizure episode: Due to uremic encephalopathy. Resolved. No further seizures since admission. PLAN: 1. Continue close monitoring. 2. We will discontinue calcitriol for now due to hypercalcemia. 3. We will however continue vitamin D supplementation. 4. We will discontinue Lasix due to increase in BUN suggestive of contraction alkalosis. 5. We will continue amlodipine 5 mg daily for adequate BP control. 6. The patient can be discharged from Nephrology point of view to follow up in 1 week with repeat labs. Job ID: [id number]
[2019-03-02] MEDS: Amlodipine 5 MG TAB PO SCH (09:06)
[2019-03-02] MEDS: Carvedilol 3.125 MG TAB PO SCH ×2 (09:06→16:24)
[2019-03-02] MEDS: Sevelamer Carbonate 800 MG TAB PO SCH ×3 (09:06→16:24)
[2019-03-02] MEDS: Calcitriol 0.25 MCG CAP PO SCH (09:06)
--- NOTE | 2019-03-02 09:37 | PRG ---
DATE OF SERVICE: 03/02/2019 SUBJECTIVE: The patient is seen and examined at bedside. She is feeling good. She does not have much complaints to offer. Her appetite is good. OBJECTIVE: VITAL SIGNS: Blood pressure is 128/88, pulse is 83, temperature is 98.2, respirations 18, O2 saturation is 93% on room air. HEENT: Head is atraumatic and normocephalic. Eyes are PERRLA. Sclerae are palish. Oral mucosa is moist. NECK: Supple. LUNGS: Breath sounds diminished at both bases. HEART: S1 and S2 normal. No S3. No S4. ABDOMEN: Soft, nontender, nondistended. EXTREMITIES: No clubbing, cyanosis, or edema. She has hemodialysis catheter in the right groin. NEUROLOGICAL: She is alert and oriented x4. There are no any motor or sensory deficits. LABORATORY DATA: Labs showed sodium of 141, potassium 3.7, chloride 98, CO2 of 30, BUN 56, creatinine 5.72, calcium 10.6, phosphorus 7.7, albumin 3.6. IMPRESSION: 1. Acute renal failure. The patient had two sessions of hemodialysis. She is cleared by Nephrology to be discharged back to [facility] with a followup on her kidney function after the discharge. 2. Congestive heart failure with left ventricular ejection fraction estimated at 40% to 45% on last echocardiogram during this hospitalization. We will get Cardiology consult with Dr. García, who is law firm receptionist today. 3. Secondary hyperparathyroidism. 4. Mild hypercalcemia. 5. Vitamin D deficiency. 6. Hypertension. 7. Anemia of chronic kidney disease. 8. Uremic encephalopathy with seizures, resolved. 9. Seizure episode due to uremic encephalopathy. PLAN: We will get Cardiology consultation. We will continue current regimen. We will follow with the morning labs. Job ID: [id number]
[2019-03-02] MEDS: Bacitracin Zinc Ointment 30 gm TUBE TOP SCH (13:08)
--- NOTE | 2019-03-02 14:59 | CON ---
DATE OF CONSULTATION: 03/02/2019 INDICATION FOR CONSULTATION: A 29-year-old female, who had acute renal failure and developed seizure disorder, who then also was noted to have a decreased ejection fraction. We were asked to see her due to mild decrease in left ventricular systolic function. She had an echocardiogram performed on the February 26, which showed ejection fraction of 40% to 45% with mild global hypokinesis with no other significant structural abnormalities. She denies any previous cardiac history. She denies any chest pain or shortness of breath. Her main complaints were that she had some knee pains after having a spin class and then, she started taking ibuprofen and steroids and then, apparently was not feeling well. She notes some lower extremity edema, especially in the feet area. She was then had a syncopal episode at the facility, was brought here. She has undergone dialysis x2 and appears to be improving. She continues to have a dialysis catheter in the left groin area. Otherwise, she has had no previous cardiac history. She had no chest pain. No shortness of breath. PAST MEDICAL HISTORY: Relatively unremarkable except for what is noted in history of present illness. She has had a , but otherwise has not had any significant operations or illnesses. FAMILY HISTORY: Unremarkable for any early heart disease. SOCIAL HISTORY: She smoked long time ago, but does not smoke now. She has occasional alcohol prior to being incarcerated. Apparently, no alcohol for the last several years. REVIEW OF SYSTEMS: Unremarkable. States she wears glasses. She denied any pulmonary complaints such as asthma, emphysema, bronchitis, or shortness of breath. She had no GI complaints such as nausea, vomiting, or diarrhea. No complaints such as dysuria, polyuria, or hematuria. She did complain of bilateral knee pain and the feet swelling, otherwise unremarkable. She has had no neurologic problems prior to having the seizure disorder. ALLERGIES: SHE IS ALLERGIC TO ASPIRIN, WHICH SHE SAYS CAUSES HER TO HAVE URTICARIA. PRESENT MEDICATIONS: She was only taking ibuprofen and some steroids prior to being admitted. At this time, she is on; 1. Norvasc 5 mg a day. 2. Rocaltrol. 3. Coreg 3.125 mg b.i.d. 4. She is on sevelamer carbonate. 5. Ativan. 6. Other p.r.n. medications. 7. She is also on bacitracin ointment topical ointment as well as ergocalciferol 1.25 mg every seven days. PHYSICAL EXAMINATION: GENERAL: Reveals a well-developed, well-nourished female, who is in no acute distress. She is alert. She is oriented. VITAL SIGNS: Blood pressure 120/88. She is afebrile. Heart rate is 83 and regular, respiratory rate is 18, and O2 saturation is 93%. HEENT: Shows the head to be normocephalic and atraumatic. Carotid pulses are present. There were no bruits. CHEST: Clear to auscultation. No rales, rhonchi, or wheezing. CARDIOVASCULAR: Reveals a regular rate and rhythm with occasional ectopy, but no significant murmurs, heaves, thrills, bruits, or rubs. ABDOMEN: Soft and nontender. Positive bowel sounds are present. EXTREMITIES: Showed no clubbing, cyanosis, or edema. NEUROLOGIC: She appears to be fully intact. She has normal strength and normal tone. SKIN: Warm and dry. LABORATORY DATA: WBC was 11, this was yesterday, hemoglobin was 9.8, hematocrit was 29.6, and platelet count was 192,000. INR was 1.3 when she was admitted and her sodium today is 141; potassium 3.7; chloride 98; bicarb is 30; BUN is 56, which is improving; and creatinine is 5.7, which also is improving. On admission, her creatinine was 9.82. CK has been elevated, but most likely this is due to the underlying onset of the renal failure. I do not see that there have been any troponin I's performed; however, the total CK is elevated, but most likely this indicates muscle and not cardiac. She denied any chest pain. Her EKG also did not show evidence of ischemic changes. Her echocardiogram showed ejection fraction of only 40% to 45% with a mild global hypokinesis. IMPRESSION AND PLAN: 1. Mild global hypokinesis of the left ventricle. Ejection fraction of 40% to 45% of uncertain etiology. Unlikely this young female with no previous cardiac history, would not have any significant coronary artery disease. She may have a cardiomyopathy, but due to the recent seizure disorder and renal insufficiency and renal failure, then I would suggest we just repeat the echocardiogram in a couple months to see whether or not the ejection fraction has improved, most likely it will. 2. Acute renal failure, which is being dealt with by the event promotions coordinator as well as the Hospital Service. From a cardiac standpoint, overall she appears to be stable and no further workup is indicated at this time. We will be more than happy to see her in the office in the future, but I would suggest she undergo a repeat echocardiogram in the next 2 to 3 months. As far as her medicines are concerned, I would continue the present medications with a low dose of beta blockers if she is able to tolerate this. Job ID: [id number]
[2019-03-02] MEDS: Ondansetron PF 4 MG/2 ML Vial IVP PRN (16:24)
[2019-03-03 05:23] LABS: #Basophils 0.1 thou/uL (0.0-0.2); #Eosinphils 0.3 thou/uL (0.0-0.7); #Lymphocytes 1.8 thou/uL (1.20-3.40); #Monocytes 0.7 thou/uL (0.11-0.59); #Neutrophils 7.3 thou/uL (1.40-6.50); %Basophils 0.8 % (0.0-1.0); %Eosinophils 3.4 % (0.0-10.0); %Lymphocytes 17.4 % (21.0-51.0); %Monocytes 6.8 % (0.0-10.0); %Neutrophils 71.6 % (42.0-75.0); Hemoglobin 11.4 g/dL (12.0-16.0); Mean Corpuscular HGB CONC 33.3 g/dL (32.0-36.0); Mean Corpuscular Volume 90.2 fL (78.0-98.0); Mean Platelet Volume 8.9 fL (7.4-10.4); Platelet Count 215 thou/uL (130-400); RBC Distribution Width 10.8 % (11.5-14.5); White Blood Cell (WBC) Count 10.2 thou/uL (4.8-10.8)
[2019-03-03 05:46] LABS: Albumin 3.7 g/dL (3.5-5.0); Anion Gap 18 mmol/L (10-20); BUN (Urea Nitrogen) 53 mg/dL (7.0-18.7); BUN/Creatinine Ratio 10.95; Calc. Creatinine Clearance 28 mL/min (70-130); Calcium 12.3 mg/dL (7.8-10.44); Carbon Dioxide 28 mmol/L (22-29); Chloride 96 mmol/L (98-107); Estimated GFR-MDRD 11; Glucose 99 mg/dL (70-105); Phosphorus 7.7 mg/dL (2.3-4.7); Potassium 3.7 mmol/L (3.5-5.1); Sodium 138 mmol/L (136-145)
[2019-03-03] MEDS: Sodium Chloride 0.9% 1,000 ML IV SCH ×3 (09:49→20:56)
[2019-03-03] MEDS: Sevelamer Carbonate 800 MG TAB PO SCH ×3 (09:49→17:19)
[2019-03-03] MEDS: Amlodipine 5 MG TAB PO SCH (09:50)
[2019-03-03] MEDS: Carvedilol 3.125 MG TAB PO SCH ×2 (09:51→16:05)
--- NOTE | 2019-03-03 09:56 | PRG ---
DATE OF SERVICE: 03/03/2019 SERVICE: Nephrology. SUBJECTIVE: A 29-year-old female admitted due to generalized weakness, nausea, and vomiting associated with syncope and collapse. The patient subsequently had a seizure episode while in the ER and was further found to have acute renal failure requiring hemodialysis. The patient is doing well and hemodialysis has been discontinued and renal function continued to improve. Denied nausea, vomiting, chest pain, palpitation, or headache. OBJECTIVE: VITAL SIGNS: Temperature 98.0, pulse 84, respiratory rate 16, SpO2 of 95% on room air, and blood pressure is 113/52. GENERAL: Young female, in no distress. Afebrile. Anicteric. Acyanotic. HEENT: Normocephalic, atraumatic. Oral mucosa is moist. CARDIOVASCULAR: Regular rhythm and rate with normal heart sounds one and two. RESPIRATORY: Good air entry bilaterally with no crackle or rhonchi or use of accessory muscles. GI: Full, soft, nontender, and nondistended with normal bowel sounds. EXTREMITIES: Grossly normal looking, atraumatic, with no edema or erythema. HEAD OF GLOBAL STRATEGIC PARTNERSHIPS: Conscious, alert, and oriented x3 with appropriate mental status. DIAGNOSTIC DATA: Renal function panel showed sodium 138, potassium 3.7, chloride 96, CO2 of 28, BUN 53, creatinine 4.84, calcium 12.3, and phosphorus 7.7. Albumin is 3.7. Of note, creatinine is down from 7.46 a day after last dialysis. However, peak creatinine was 13.34 on admission. ASSESSMENT: 1. Hypercalcemia: It is felt to be due to vitamin D supplementation. The patient was started on calcitriol and vitamin D supplementation for vitamin D deficiency and secondary hyperparathyroidism with initial PTH of 400. 2. Acute renal failure: [place] to be due to nonsteroidal anti-inflammatory drug induced nephropathy with possible contribution from rhabdomyolysis. 3. Rhabdomyolysis: Related to seizure episode. 4. Metabolic acidosis: Resolved. 5. Hypertension: Control is adequate. 6. Hyperkalemia: Resolved. 7. Uremic encephalopathy with seizure, resolved. PLAN: 1. Discontinue calcitriol and vitamin D supplementation. 2. Start IV fluid therapy with LR at 125 mL/h. 3. Get repeat intact PTH. Repeat BMP in the morning. [place] oral intake advised. Continue Renvela for hyperphosphatemia. Job ID: [id number]
[2019-03-03] MEDS: Ondansetron PF 4 MG/2 ML Vial IVP PRN (13:57)
--- NOTE | 2019-03-03 14:32 | PDOC.CPN ---
- Subjective Date: 03/03/19 Time: 14:39 Interval history: The pt seen and examined. No overnight events. No cardiac complaints. - Objective Allergies/Adverse Reactions: Allergies Allergy/AdvReac Type Severity Reaction Status Date / Time aspirin Allergy Hives Verified 02/25/19 22:18 Visit Medications: Current Medications Acetaminophen (Tylenol) 650 mg PO Q4H PRN PRN Reason: Headache/Fever/Mild Pain (1-3) Acetaminophen (Tylenol) [address] Q4H PRN PRN Reason: Headache/Fever/Mild Pain (1-3) Amlodipine Besylate (Norvasc) 5 mg PO DAILY [facility] Last Admin: 03/03/19 09:50 Dose: 5 mg Bacitracin Zinc (Bacitracin Zinc Ointment 30 Gm) 1 gm TOP Q24HR [facility] Stop: 03/04/19 23:59 Last Admin: 03/02/19 13:08 Dose: 1 applic Carvedilol (Coreg) 3.125 mg PO BID-[facility] Last Admin: 03/03/19 09:51 Dose: 3.125 mg Sodium Chloride (Normal Saline 0.9%) 1,000 mls @ 125 mls/hr IV .Q8H [facility] Last Admin: 03/03/19 09:49 Dose: 1,000 mls Lorazepam (Ativan) 2 mg SLOW IVP Q15MIN PRN PRN Reason: Seizures Ondansetron HCl (Zofran) 4 mg IVP Q6H PRN PRN Reason: Nausea/Vomiting Last Admin: 03/03/19 13:57 Dose: 4 mg Sevelamer Carbonate (Renvela) 1,600 mg PO TID-[facility] Last Admin: 03/03/19 13:57 Dose: Not Given Sodium Chloride (Flush - Normal Saline) 10 ml IVF Q12H PRN PRN Reason: Saline Flush Last Admin: 03/02/19 09:10 Dose: 10 ml Sodium Chloride (Flush - Normal Saline) 10 ml IVF PRN PRN PRN Reason: Saline Flush Vital Signs & Weight: Vital Signs Temp Pulse Resp BP BP BP Pulse Ox 03/03/19 11:13 97.6 F 59 L 16 133/87 96 03/03/19 09:50 84 124/93 H 03/03/19 07:43 98.0 F 84 16 113/52 L 95 Admit Weight 223 lb 3.2 oz Weight 223 lb 3.2 oz - Physical Exam General: alert & oriented x3 HEENT: mucus membranes moist Neck: supple neck Cardiac: regular rate and rhythm Lungs: clear to auscultation Neuro: cranial nerve 2-12 intact Skin: clear Musculoskeletal: normal range of motion - Labs Result Diagrams: 03/03/19 15:54 03/03/19 05:10 - Assessment/Plan Assessment/Plan: 1. Chronic systolic HF with EF 40-45% possible 2/2 CMYor possible acidosus associated with the acute renal failure or post seizure. - Asymptomatic; On Coreg 3.125mg BID; will repeat Echo in 2-3 months; No plan for LHC for now due to hx of CKD 2. ARF with Metabolic acidosis - s/p HD x2; managed by cold saw operator 3. New onset seizure - MAR reviewed * Echo in 02/2019 with EF 40-45%, mild global hypokinesis; Pt. seen and eval. by me. I agree with the A/P by the COMPLIANCE COORDINATOR.It is unlikely that she has CAD. The echo should be repeated in 1-2 months to re-evaluate the LV function and hopefully it will be back to normal. Chest clear. RRR. No edema. Left groin still mild bleed where the temporary dialysis catheter was , after the pt. coughed. Cardiac status is stable. No cardiac complaints. I will sign off. If any changes please contact me. md steve
--- NOTE | 2019-03-03 14:44 | PDOC.HOSPP ---
- Subjective Subjective: Seen and examined. Discussed patient's medical conditions, time was given for questions, Questions were asked all answered in detail. Patient does endorse using Ibuprofen frequently prior to admission. - Objective Vital Signs & Weight: Vital Signs (12 hours) Temp Pulse Resp BP BP BP Pulse Ox 03/03/19 11:13 97.6 F 59 L 16 133/87 96 03/03/19 09:50 84 124/93 H 03/03/19 07:43 98.0 F 84 16 113/52 L 95 Weight Admit Weight 223 lb 3.2 oz Weight 223 lb 3.2 oz I&O: 03/02/19 03/03/19 03/04/19 06:59 06:59 06:59 Intake Total 1760 860 Output Total 2625 Balance -865 860 Result Diagrams: 03/03/19 05:10 03/03/19 05:10 Hospitalist ROS - Review of Systems All other systems reviewed; all pertinent +/- noted in HPI/Subj - Medication Medications: Active Medications Generic Name Dose Route Start Last Admin Trade Name Freq PRN Reason Stop Dose Admin Amlodipine Besylate 5 mg 03/01/19 09:00 03/03/19 09:50 Norvasc PO 5 mg DAILY CELSO Administration Bacitracin Zinc 1 gm 03/01/19 13:00 03/02/19 13:08 Bacitracin Zinc Ointment 30 Gm TOP 03/04/19 23:59 1 applic Q24HR CELSO Administration Carvedilol 3.125 mg 02/28/19 08:00 03/03/19 09:51 Coreg PO 3.125 mg BID-WM CELSO Administration Sodium Chloride 1,000 mls @ 125 mls/hr 03/03/19 06:45 03/03/19 09:49 Normal Saline 0.9% IV 1,000 mls .Q8H CELSO Administration Ondansetron HCl 4 mg 02/26/19 22:12 03/03/19 13:57 Zofran IVP 4 mg Q6H PRN Administration Nausea/Vomiting Sevelamer Carbonate 1,600 mg 02/28/19 08:00 03/03/19 13:57 Renvela PO Not Given TID-WM CELSO Sodium Chloride 10 ml 02/25/19 13:05 03/02/19 09:10 Flush - Normal Saline IVF 10 ml Q12H PRN Administration Saline Flush - Exam General Appearance: NAD Eye: anicteric sclera ENT: no oropharyngeal lesions, moist mucosa Neck: supple, symmetric Heart: RRR, no murmur, no gallops, no rubs Respiratory: CTAB, no wheezes, no ronchi Gastrointestinal: soft, non-tender, non-distended, normal bowel sounds, no palpable masses, no hepatomegaly, no splenomegaly, no bruit Extremities: no clubbing, no edema Skin: no rashes Neurological: cranial nerve grossly intact, normal sensation to touch, no weakness Musculoskeletal: no muscle wasting Psychiatric: normal affect, A&O x 3 Hosp A/P (1) ARF (acute renal failure) Status: Acute Qualifiers: Acute renal failure type: unspecified Qualified Code(s): N17.9 - Acute kidney failure, unspecified (2) CHF (congestive heart failure), NYHA class II Code(s): I50.9 - HEART FAILURE, UNSPECIFIED Status: Acute Qualifiers: Congestive heart failure type: systolic Congestive heart failure chronicity : acute Qualified Code(s): I50.21 - Acute systolic (congestive) heart failure (3) Syncope Code(s): R55 - SYNCOPE AND COLLAPSE Status: Acute (4) GERD (gastroesophageal reflux disease) Code(s): K21.9 - GASTRO-ESOPHAGEAL REFLUX DISEASE WITHOUT ESOPHAGITIS Status: Chronic (5) Obesity (BMI 30-39.9) Code(s): E66.9 - OBESITY, UNSPECIFIED Status: Chronic (6) Headache Code(s): R51 - HEADACHE Status: Resolved Qualifiers: Headache type: unspecified (7) Hyperkalemia Code(s): E87.5 - HYPERKALEMIA Status: Resolved (8) Metabolic acidosis Code(s): E87.2 - ACIDOSIS Status: Resolved (9) New onset seizure Code(s): R56.9 - UNSPECIFIED CONVULSIONS Status: Resolved - Plan Plan: medical/surgical unit nephrology consultation, recommendations appreciated cardiology consultation, recommendations appreciated IV fluid resuscitation status post hemodialysis, patient may require further episodes of hemodialysis pending renal function improvement echocardiogram with diminished ejection fraction, will need follow up echocardiogram and 2 to 3 months per cardiology cardiomyopathy regimen as tolerated by living advisor symptomatic medications for nausea and vomiting renal diet Replace electrolytes as needed
[2019-03-03 16:31] LABS: Hemoglobin 11.6 g/dL (12.0-16.0); Platelet Count 278 thou/uL (130-400)
[2019-03-03] MEDS: Bacitracin Zinc Ointment 30 gm TUBE TOP SCH (18:23)
[2019-03-04] MEDS: Sodium Chloride 0.9% 1,000 ML IV SCH ×3 (05:57→17:41)
[2019-03-04 06:35] LABS: #Basophils 0.1 thou/uL (0.0-0.2); #Eosinphils 0.3 thou/uL (0.0-0.7); #Lymphocytes 1.7 thou/uL (1.20-3.40); #Monocytes 0.8 thou/uL (0.11-0.59); #Neutrophils 6.8 thou/uL (1.40-6.50); %Eosinophils 3.5 % (0.0-10.0); %Lymphocytes 17.4 % (21.0-51.0); %Neutrophils 70.1 % (42.0-75.0); Hemoglobin 10.6 g/dL (12.0-16.0); Mean Corpuscular HGB CONC 33.1 g/dL (32.0-36.0); Mean Corpuscular Hemoglobin 29.9 pg (27.0-31.0); Mean Corpuscular Volume 90.3 fL (78.0-98.0); Mean Platelet Volume 8.6 fL (7.4-10.4); Platelet Count 204 thou/uL (130-400); RBC Distribution Width 10.7 % (11.5-14.5); Red Blood Cell (RBC) Count 3.54 mill/uL (4.20-5.40); White Blood Cell (WBC) Count 9.7 thou/uL (4.8-10.8)
[2019-03-04 07:01] LABS: ALT (SGPT) 16 U/L (8-55); AST (SGOT) 12 U/L (5-34); Albumin 3.5 g/dL (3.5-5.0); Alkaline Phosphatase 64 U/L (40-110); Anion Gap 16 mmol/L (10-20); BUN (Urea Nitrogen) 51 mg/dL (7.0-18.7); Bilirubin, Total 0.6 mg/dL (0.2-1.2); Calc. Creatinine Clearance 32 mL/min (70-130); Carbon Dioxide 27 mmol/L (22-29); Chloride 100 mmol/L (98-107); Estimated GFR-MDRD 13; Globulin 3.5 g/dL (2.4-3.5); Glucose 93 mg/dL (70-105); Phosphorus 7.3 mg/dL (2.3-4.7); Potassium 3.6 mmol/L (3.5-5.1); Sodium 139 mmol/L (136-145)
[2019-03-04 07:04] LABS: Calcium 12.6 mg/dL (7.8-10.44)
[2019-03-04 09:17] LABS: Thyroid Stimulating Hormone 0.9982 uIU/mL (0.35-4.94); Vitamin D, 25 Hydroxy 18.1 ng/ml (> 30.0)
[2019-03-04] MEDS: Sevelamer Carbonate 800 MG TAB PO SCH ×3 (09:36→17:33)
[2019-03-04] MEDS: Carvedilol 3.125 MG TAB PO SCH ×2 (09:36→17:33)
--- NOTE | 2019-03-04 13:38 | PRG ---
DATE OF SERVICE: 03/04/2019 SERVICE: Nephrology. SUBJECTIVE: A 29-year-old lady being followed up for acute renal failure as well as electrolyte derangements. The patient was admitted after a syncopal episode and subsequently had a seizure in the ER. Further evaluation revealed acute renal failure with severe azotemia and was dialyzed two times. Creatinine has been trending down without dialysis, but the patient later developed hypercalcemia. Reports feeling great today. Denied nausea, vomiting, or abdominal pain. OBJECTIVE: VITAL SIGNS: Temperature 98.1, pulse 71, respiratory rate 16, SpO2 of 97 on room air, blood pressure is 122/70. GENERAL: Young female, in no distress. Afebrile. Anicteric. Acyanotic. HEENT: Normocephalic, atraumatic. Oral mucosa is moist. CARDIOVASCULAR: Regular rhythm and rate with normal heart sounds one and two. RESPIRATORY: Good air entry bilaterally with no crackle or rhonchi or use of accessory muscles. GI: Full, soft, nontender, nondistended with normal bowel sounds. EXTREMITIES: Grossly normal looking atraumatic with no edema or erythema. VEST FRONT PRESSER: Conscious, alert, oriented x3 with appropriate mental status. DIAGNOSTIC DATA: CBC showed WBC count of 9.7, hemoglobin of 10.6, platelet of 204. CMP showed sodium 139, potassium 3.6, chloride 100, CO2 of 27, BUN 51, creatinine 4.15, glucose 93, calcium 12.6, phosphorus 7.3, total bilirubin 0.6, AST 12, ALT 16, alkaline phosphatase 64, total protein 7.0, albumin 3.5. PTH intact is 212 on March 03, which is markedly lower compared to PTH of 417 on February 26. ASSESSMENT: 1. Hypercalcemia: Etiology is unclear. The patient was recently started on calcitriol and 25-hydroxyvitamin D supplementation for vitamin D deficiency and secondary hyperparathyroidism. However, repeat PTH intact with development of hypercalcemia showed marked reduction from 417 to 212. Clearly this is not PTH driven. Vitamin D supplementation is most likely the etiologic cause. Hyperthyroidism and other etiologies are considered as well. Dehydration and volume depletion also may be contributory. 2. Acute renal failure: [place] to be due to NSAID nephropathy with possible contribution from rhabdomyolysis. Creatinine and BUN are trending down worse since discontinuation of dialysis. 3. Hypertension: Blood pressure is well controlled. The patient had a near syncope yesterday. 4. Volume status: The patient seems euvolemic. 5. Hyperkalemia: Resolved with dialysis. 6. Metabolic acidosis: Resolved with dialysis. 7. Anemia of chronic kidney disease. PLAN: 1. Continue normal saline at 125 mL/h. 2. Discontinue amlodipine and monitor vitals. 3. Get 1,25-dihydroxyvitamin D level. 4. Also, get repeat 25-hydroxyvitamin D level as well as TSH. 5. Repeat BMP in the morning. 6. Also follow electrolytes and renal function. 7. Vitamin D supplementation has been discontinued. Job ID: [id number]
[2019-03-04] MEDS: Bacitracin Zinc Ointment 30 gm TUBE TOP SCH (13:48)
--- NOTE | 2019-03-04 14:48 | PDOC.HOSPP ---
- Subjective Subjective: Seen and examined. Had episode of lightheadedness yesterday afternoon. Patient did not actually lose consciousness. By the time patient's blood pressure was taken she had a normal blood pressure. No further episodes since yesterday. Antihypertensive medications have been stopped by nephrology. Patient still feeling nauseated and vomiting, still with significantly elevated renal function and hypercalcemia. - Objective Vital Signs & Weight: Vital Signs (12 hours) Temp Pulse Resp BP Pulse Ox 03/04/19 11:20 97.5 F L 75 16 123/84 98 03/04/19 07:58 98.1 F 71 16 122/70 97 03/04/19 04:46 98.6 F 94 19 129/85 96 Weight Admit Weight 223 lb 3.2 oz Weight 223 lb 3.2 oz I&O: 03/03/19 03/04/19 03/05/19 06:59 06:59 06:59 Intake Total 860 2877 Balance 860 2877 Result Diagrams: 03/04/19 06:20 03/04/19 06:20 Additional Labs: Accuchecks 03/03/19 15:47 POC Glucose 110 Hospitalist ROS - Review of Systems All other systems reviewed; all pertinent +/- noted in HPI/Subj - Medication Medications: Active Medications Generic Name Dose Route Start Last Admin Trade Name Freq PRN Reason Stop Dose Admin Bacitracin Zinc 1 gm 03/01/19 13:00 03/04/19 13:48 Bacitracin Zinc Ointment 30 Gm TOP 03/04/19 23:59 1 applic Q24HR CELSO Administration Carvedilol 3.125 mg 02/28/19 08:00 03/04/19 09:36 Coreg PO 3.125 mg BID-WM CELSO Administration Sodium Chloride 1,000 mls @ 125 mls/hr 03/03/19 06:45 03/04/19 09:40 Normal Saline 0.9% IV 1,000 mls .Q8H CELSO Administration Ondansetron HCl 4 mg 02/26/19 22:12 03/03/19 13:57 Zofran IVP 4 mg Q6H PRN Administration Nausea/Vomiting Sevelamer Carbonate 1,600 mg 02/28/19 08:00 03/04/19 13:48 Renvela PO 1,600 mg TID-WM CELSO Administration Sodium Chloride 10 ml 02/25/19 13:05 03/02/19 09:10 Flush - Normal Saline IVF 10 ml Q12H PRN Administration Saline Flush - Exam General Appearance: NAD, awake alert Eye: anicteric sclera ENT: normocephalic atraumatic, moist mucosa Neck: supple, no lymphadenopathy Heart: RRR, no murmur, no gallops Respiratory: CTAB, no wheezes, no rales Gastrointestinal: soft, non-tender, non-distended, no guarding, no rigidity Extremities: no cyanosis, no edema Skin: no lesions, no rashes Neurological: cranial nerve grossly intact, normal sensation to touch, no weakness Musculoskeletal: normal strength, no muscle wasting Psychiatric: normal affect, A&O x 3 Hosp A/P (1) ARF (acute renal failure) Status: Acute Qualifiers: Acute renal failure type: unspecified Qualified Code(s): N17.9 - Acute kidney failure, unspecified (2) CHF (congestive heart failure), NYHA class II Code(s): I50.9 - HEART FAILURE, UNSPECIFIED Status: Acute Qualifiers: Congestive heart failure type: systolic Congestive heart failure chronicity : acute Qualified Code(s): I50.21 - Acute systolic (congestive) heart failure (3) Syncope Code(s): R55 - SYNCOPE AND COLLAPSE Status: Acute (4) GERD (gastroesophageal reflux disease) Code(s): K21.9 - GASTRO-ESOPHAGEAL REFLUX DISEASE WITHOUT ESOPHAGITIS Status: Chronic (5) Obesity (BMI 30-39.9) Code(s): E66.9 - OBESITY, UNSPECIFIED Status: Chronic (6) Headache Code(s): R51 - HEADACHE Status: Resolved Qualifiers: Headache type: unspecified (7) Hyperkalemia Code(s): E87.5 - HYPERKALEMIA Status: Resolved (8) Metabolic acidosis Code(s): E87.2 - ACIDOSIS Status: Resolved (9) New onset seizure Code(s): R56.9 - UNSPECIFIED CONVULSIONS Status: Resolved - Plan Plan: medical/surgical unit nephrology consultation, recommendations appreciated cardiology consultation, recommendations appreciated IV fluid resuscitation status post hemodialysis, patient may require further episodes of hemodialysis pending renal function improvement echocardiogram with diminished ejection fraction, will need follow up echocardiogram and 2 to 3 months per cardiology Stop amlodipine, episode of near syncope likely related to low BP cardiomyopathy regimen as tolerated by human resources operations specialist symptomatic medications for nausea and vomiting renal diet Replace electrolytes as needed
--- NOTE | 2019-03-04 15:20 | PQF ---
CLINICAL DOCUMENTATION IMPROVEMENT CLARIFICATION FORM: ICD-10 Updated PLEASE DO AN ADDENDUM TO THE PROGRESS NOTE WITH ANY DOCUMENTATION UPDATES OR ADDITIONS AND CARRY THROUGH TO DC SUMMARY. THANK YOU. DATE: 03/04/2019 ATTN: Dr. Wallis Please exercise your independent, professional judgment in responding to the clarification form. Clinical indicators are provided on the bottom of this form for your review Please check appropriate box(s): Conflicting documentation was noted in the Medical Record, please clarify if patient is being treated/monitored for: [ ] Chronic systolic congestive heart failure [ XX ] Acute systolic congestive heart failure. [ ] Other diagnosis [ ] Unable to determine In addition, please specify: Present on Admission (POA): [ XX ] Yes [ ] No [ ] Unable to determine For continuity of documentation, please document condition throughout progress notes and discharge summary. Thank You. CLINICAL INDICATORS - SIGNS / SYMPTOMS/ LABS 03/03 (Asif) Chronic systolic HF with EF 40-45% possible 2/2 CMY or possible acidosis associated with the acute renal failure or post seizure. Asymptomatic 03/03 (Bimal) Acute systolic (congestive) heart failure. RISKS: 03/02 ([place]) Congestive heart failure with left ventricular EF estimated at 40-45% on last echocardiogram during this hospitalization TREATMENT: Order Cardiology consult 03/02 03/03 (Asif) On Coreg 3.125mg BID Thank you, Olivia (This form is maintained as a part of the permanent medical record) 2014 [employer]. All Rights Reserved Olivia Franco RN, BSN [email or web address] Office: [phone] [facility]
[2019-03-04] MEDS: Ondansetron PF 4 MG/2 ML Vial IVP PRN (17:41)
[2019-03-05] MEDS: Sodium Chloride 0.9% 1,000 ML IV SCH ×2 (01:05→08:48)
[2019-03-05 08:31] LABS: Albumin 3.4 g/dL (3.5-5.0); Anion Gap 12 mmol/L (10-20); BUN (Urea Nitrogen) 39 mg/dL (7.0-18.7); BUN/Creatinine Ratio 12.26; Calc. Creatinine Clearance 42 mL/min (70-130); Calcium 11.7 mg/dL (7.8-10.44); Carbon Dioxide 28 mmol/L (22-29); Chloride 104 mmol/L (98-107); Estimated GFR-MDRD 17; Glucose 91 mg/dL (70-105); Phosphorus 5.7 mg/dL (2.3-4.7); Potassium 3.4 mmol/L (3.5-5.1); Sodium 141 mmol/L (136-145)
[2019-03-05] MEDS: Sevelamer Carbonate 800 MG TAB PO SCH (08:48)
[2019-03-05] MEDS: Carvedilol 3.125 MG TAB PO SCH (08:48)
[2019-03-05] MEDS ORDERED: Potassium Chloride 20 MEQ TAB PO SCH (10:00)
[2019-03-05] MEDS: Ondansetron PF 4 MG/2 ML Vial IVP PRN (11:04)
--- NOTE | 2019-03-05 11:07 | PRG ---
DATE OF SERVICE: 03/05/2019 SERVICE: Nephrology. SUBJECTIVE: A 29-year-old shelter inmate, being followed up for acute renal failure and electrolyte derangements including hypercalcemia. The patient reports some nausea and vomiting since last 2 days. However, today appetite has improved and nausea has subsided. No fever or palpitation or leg swelling. OBJECTIVE: VITAL SIGNS: Temperature 98, pulse 64, respiratory rate 20, SpO2 of 96% on room air, and blood pressure is 152/80. GENERAL: Young female, in no distress. Afebrile. Anicteric. Acyanotic. HEENT: Normocephalic and atraumatic. Oral mucosa is moist. CARDIOVASCULAR: Regular rhythm and rate with normal heart sounds 1 and 2. RESPIRATORY: Good air entry bilaterally with no crackle or rhonchi or use of accessory muscles. GI: Full, soft, nontender, nondistended with normal bowel sounds. EXTREMITIES: Grossly normal looking, atraumatic with no edema or erythema. CONCIERGE MANAGER: Conscious, alert and oriented x3 with appropriate mental status. DIAGNOSTIC DATA: Renal function panel showed sodium 141, potassium 3.4, chloride 104, CO2 of 28, BUN 39, creatinine 3.18, calcium 11.7, phosphorus 5.7, and albumin 3.4. ASSESSMENT: 1. 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 2. Hypercalcemia: [place] to be related to vitamin D analog supplementation. Trending downwards with IV fluid and discontinuation of vitamin D supplementation. 3. Hypokalemia. 4. Nausea and vomiting: [place] to be uremic symptoms. Improving. Gastritis is a concern. 5. Hypertension: Controlled. 6. Anemia of chronic kidney disease. 7. IgA nephropathy. 8. Rhabdomyolysis. 9. 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 10. Uremic encephalopathy with seizure. 11. Seizure episode. PLAN: 1. We will replete potassium with potassium chloride. 2. We will also start the patient on Protonix for presumed uremic gastritis given nausea and vomiting. 3. The patient can be discharged from Nephrology point of view. Weekly renal function panel is recommended to follow renal function and electrolytes. The patient need to be followed up within 1 week of discharge. The care plan was discussed with the patient as well as with primary attending. Job ID: [id number]
[2019-03-05] MEDS ORDERED: Sevelamer Carbonate 800 MG TAB PO SCH (12:00)
[2019-03-05 13:29] VITALS: BP 138/90; TEMP 97.8
--- NOTE | 2019-03-05 19:11 | DIS ---
DATE OF ADMISSION: 02/25/2019 DATE OF DISCHARGE: 03/05/2019 REASON FOR HOSPITALIZATION: Acute kidney injury/acute renal failure. SIGNIFICANT FINDINGS: The patient was found to have acute renal failure and acute systolic cardiomyopathy. PROCEDURES PERFORMED/TREATMENTS RENDERED: The patient had maximum medical therapy by all specialists including Nephrology, Cardiology, Neurology, and seo marketing specialist. CONDITION ON DISCHARGE: Stable. SPECIFIC INSTRUCTIONS FOR THE PATIENT/FAMILY: 1. The patient is recommended to take all medications as directed, to be re-evaluated by Nephrology and primary care physician in the next 5 to 7 days. 2. The patient is recommended to have labs drawn in the next week, as determined by Nephrology. 3. The patient is recommended to follow up with Nephrology in the outpatient clinic in the next 7 days. 4. The patient is recommended to return to acute care hospital immediately if signs or symptoms return, worsen, or any other new symptoms occur. DISCHARGE MEDICATIONS: 1. Sevelamer 800 mg one tablet p.o. t.i.d. 2. Protonix 40 mg one tablet p.o. daily. 3. Carvedilol 3.125 mg one tablet p.o. b.i.d. 4. Tylenol 1000 mg one tablet p.o. q.8 hours p.r.n. pain. 5. Zofran 4 mg one tablet p.o. q.4 hours p.r.n. nausea, vomiting. HOSPITAL COURSE: Ms. Sunshine is a very pleasant 29-year-old female, who is an incarcerated inmate, who was sent to [facility] on 02/25/2019, please see full history and physical and consultation notes from all specialists for full details. The patient initially was transferred for headache, nausea, and vomiting. The patient was found to have acute renal failure. Nephrology consultation requested, please see full consultation and progress notes for details. On admission, the patient's creatinine was level of 13 and she did require hemodialysis-this was coordinated by Nephrology. Etiology of renal failure was likely secondary to abuse of nonsteroidal anti-inflammatory drugs including ibuprofen. The patient did undergo a renal biopsy, please see full report for details from 02/26/2019-the patient tolerated this procedure well without intraoperative complications. Unfortunately, the patient did have complication of renal failure including a seizure. Neurology was consulted, please see full consultation and progress notes for details. As the patient's renal function improved and normalized with hemodialysis, the patient had no further seizures. The patient was not started on antiepileptic drugs by Neurology. The patient had echocardiogram, please see full report for details, the patient was found to have a mildly reduced ejection fraction of 40% and was placed on a cardiomyopathy regimen by Nephrology. This heart failure may be secondary to renal failure etiology and Cardiology recommended no acute workup at this time. For congestive heart failure, the patient was recommended to follow up with Cardiology in the outpatient clinic in the next 2 to 3 months and a repeat echocardiogram will be performed at that time. If the patient's congestive heart failure persists at that time, further plan of care will be determined by Cardiology. Thankfully, the patient did improve with maximum medical therapy and the patient's renal function downtrended. The patient did not require additional rounds of hemodialysis and her renal function including urine output began to normalize. The patient was recommended safe for discharge by all specialists on 03/05/2019 with close followup in the outpatient setting. Most importantly, the patient must see Nephrology in the next 7 days and must have a repeat lab draw to trend her renal function. The patient must follow up with Cardiology in the next 2 to 3 months for repeat of echocardiogram. The patient must follow up with primary care physician in the next 5 to 7 days. I explicitly informed the patient that if any uremic symptoms including but not limited to nausea, vomiting, dizziness, headache, change in vision, or general malaise occur, she is to return to acute care hospital immediately. The patient understands the symptoms of uremia and was able to repeat them to me. The patient states that she will return to acute care hospital if any of these symptoms occur or any new symptoms occur or worsen. The patient was discharged in stable condition on 03/05/2019, and hand written prescriptions were given so that she may receive these medications while she is in halfway to be dispensed by medical and health services manager as per protocol. Greater than 40 minutes spent coordinating care and discharge process for this patient. Job ID: [id number]
[2019-03-06] MEDS ORDERED: Ergocalciferol 1.25 MG(50,000 UNITS) CAP PO SCH (09:00)
--- NOTE | 2019-03-07 09:53 | EKG ---
Test Reason : SEIZURE Blood Pressure : / mmHG Vent. Rate : 117 BPM Atrial Rate : 117 BPM P-R Int : 146 ms QRS Dur : 084 ms QT Int : 334 ms P-R-T Axes : 065 -16 032 degrees QTc Int : 465 ms Sinus tachycardia Possible Left atrial enlargement Nonspecific ST abnormality Abnormal ECG Confirmed by PRESTON MIRZA D.O. ([id number]), medical editor PASHA LEE ([id number] on 03/07/2019 9:53:06 AM Referred By: Confirmed By:PRESTON MIRZA D.O.
== END 2019-03-05 13:31 | DRG 917 ==
LOC: ERS 08:14 → EEVIPCON 08:14 → 2SE 12:17 → T4-A 02-27 13:20
PROVIDERS: ADMIT Internal Medicine; ATTEND Internal Medicine
PROC: 5A1D70Z Performance of Urinary Filtration, Intermittent, Less than 6 Hours Per Day (ICD-10-PCS; 2019-02-25)
PROC: 0TB13ZX Excision of Left Kidney, Percutaneous Approach, Diagnostic (ICD-10-PCS; principal; 2019-02-26)
PROC: 5A1D70Z Performance of Urinary Filtration, Intermittent, Less than 6 Hours Per Day (ICD-10-PCS; 2019-02-26)
DX: T38.0X1A Poisoning by glucocorticoids and synthetic analogues, accidental (unintentional), initial encounter (principal); I50.21 Acute systolic (congestive) heart failure; N17.0 Acute kidney failure with tubular necrosis; I42.9 Cardiomyopathy, unspecified; E87.2 Acidosis; M62.82 Rhabdomyolysis; G93.49 Other encephalopathy; N25.81 Secondary hyperparathyroidism of renal origin; T39.311A Poisoning by propionic acid derivatives, accidental (unintentional), initial encounter; F19.10 Other psychoactive substance abuse, uncomplicated; K21.9 Gastro-esophageal reflux disease without esophagitis; E87.5 Hyperkalemia; G40.909 Epilepsy, unspecified, not intractable, without status epilepticus; N14.1 Nephropathy induced by other drugs, medicaments and biological substances; E87.70 Fluid overload, unspecified; E83.39 Other disorders of phosphorus metabolism; E83.52 Hypercalcemia; E66.9 Obesity, unspecified; Z68.37 Body mass index [BMI] 37.0-37.9, adult; D64.9 Anemia, unspecified; N18.9 Chronic kidney disease, unspecified; D63.1 Anemia in chronic kidney disease; E55.9 Vitamin D deficiency, unspecified; Y92.148 Other place in prison as the place of occurrence of the external cause
CPT/HCPCS: 36415; 36416; 36556; 50200; 51701; 70450; 71045; 76770; 76856; 77012; 80048; 80053; 80069; 80074; 80306; 80307; 81003; 81015; 82306; 82436; 82550; 82570; 82607; 82652; 82728; 82746; 83540; 83550; 83605; 83735; 83970; 84100; 84133; 84146; 84156; 84300; 84443; 84540; 84703; 85025; 85610; 85652; 85730; 86038; 86140; 86160; 86225; 87340; 87389; 88329; 90935; 93005; 93306; 96361; 96365; 96375; A4353; G0257; J1644; J1885; J2060; J2150; J2250; J2405; J2765; J2916; J2997; J3010; J3490; J7070